=== PATIENT | male | born 1960 | race Caucasian/White ===

== ENCOUNTER → 2016-12-13 | Outpatient (CLI) | payer BC ==
[2016-12-13 17:22] LABS: ABSOLUTE EOSINOPHILS # (AUTO) 0.1 10^3/uL (0.0-0.6); ABSOLUTE LYMPHOCYTES (AUTO) 0.8 10^3/uL (0.5-4.7); ABSOLUTE MONOCYTES (AUTO) 1.1 10^3/uL (0.1-1.4); BASOPHILS % (AUTO) 0.2 % (0-2); EOSINOPHILS % (AUTO) 0.6 % (0-6); HEMATOCRIT 46.2 % (37.9-51.0); HEMOGLOBIN 15.5 g/dL (13.5-17.0); HGB HCT DIFFERENCE 0.3; LYMPHOCYTES % (AUTO) 5.1 % (13-45); MEAN CORPUSCULAR HEMOGLOBIN 28.5 pg (27.0-33.4); MEAN CORPUSCULAR HGB CONC 33.5 g/dL (32.0-36.0); MEAN CORPUSCULAR VOLUME 85 fl (80-97); MONOCYTES % (AUTO) 6.9 % (3-13); RED BLOOD COUNT 5.44 10^6/uL (4.35-5.55); RED CELL DISTRIBUTION WIDTH 13.7 % (11.5-14.0); SEGMENTED NEUTROPHILS % (AUTO) 87.2 % (42-78)
[2016-12-13 17:36] LABS: ALANINE AMINOTRANSFERASE 45 U/L (21-72); ALBUMIN 4.3 g/dL (3.5-5.0); ALKALINE PHOSPHATASE 55 U/L (38-126); ANION GAP 14 (5-19); ASPARTATE AMINO TRANSFERASE 32 U/L (17-59); BILIRUBIN,TOTAL 1.5 mg/dL (0.2-1.3); BLOOD UREA NITROGEN 20 mg/dL (7-20); CALCIUM 9.4 mg/dL (8.4-10.2); CARBON DIOXIDE 26 mmol/L (22-30); CHLORIDE 101 mmol/L (98-107); CREATININE RESULT 1.08 mg/dL (0.52-1.25); GLUCOSE 110 mg/dL (75-110); LIPASE 65.7 U/L (23-300); POTASSIUM 4.4 mmol/L (3.6-5.0); SODIUM 141.4 mmol/L (137-145); TOTAL PROTEIN 7.2 g/dL (6.3-8.2)
== END ==
LOC: OD 16:12
PROVIDERS: ATTEND Family Medicine
DX: K29.90 Gastroduodenitis, unspecified, without bleeding (principal)
CPT/HCPCS: 36415; 80053; 83690; 85025

== ENCOUNTER → 2016-12-13 | Outpatient (CLI) | payer BC | LOC: RAD 16:42 | PROVIDERS: ATTEND Family Medicine | DX: K29.90 Gastroduodenitis, unspecified, without bleeding (principal) | CPT/HCPCS: 74020 ==

== ENCOUNTER → 2016-12-14 | Outpatient (CLI) | payer BC ==
[2016-12-14 14:15] LABS: ABSOLUTE EOSINOPHILS # (AUTO) 0.1 10^3/uL (0.0-0.6); ABSOLUTE LYMPHOCYTES (AUTO) 1.9 10^3/uL (0.5-4.7); ABSOLUTE MONOCYTES (AUTO) 0.9 10^3/uL (0.1-1.4); ABSOLUTE NEUT (AUTO) 5.9 10^3/uL (1.7-8.2); BASOPHILS % (AUTO) 0.1 % (0-2); EOSINOPHILS % (AUTO) 0.9 % (0-6); HEMATOCRIT 46.4 % (37.9-51.0); HGB HCT DIFFERENCE -1.4; LYMPHOCYTES % (AUTO) 21.6 % (13-45); MEAN CORPUSCULAR HEMOGLOBIN 28.1 pg (27.0-33.4); MEAN CORPUSCULAR HGB CONC 32.3 g/dL (32.0-36.0); MEAN CORPUSCULAR VOLUME 87 fl (80-97); MONOCYTES % (AUTO) 10.5 % (3-13); RED BLOOD COUNT 5.33 10^6/uL (4.35-5.55); RED CELL DISTRIBUTION WIDTH 13.8 % (11.5-14.0); SEGMENTED NEUTROPHILS % (AUTO) 66.9 % (42-78); WHITE BLOOD COUNT 8.9 10^3/uL (4.0-10.5)
== END ==
LOC: OD 13:27
PROVIDERS: ATTEND Family Medicine
DX: K52.9 Noninfective gastroenteritis and colitis, unspecified (principal)
CPT/HCPCS: 36415; 74020; 85025

== ENCOUNTER → 2016-12-17 | Outpatient (CLI) | payer BC ==
[2016-12-17 12:26] LABS: ANION GAP 12 (5-19); BLOOD UREA NITROGEN 13 mg/dL (7-20); CALCIUM 9.7 mg/dL (8.4-10.2); CARBON DIOXIDE 30 mmol/L (22-30); CHLORIDE 102 mmol/L (98-107); CREATININE RESULT 1.03 mg/dL (0.52-1.25); GLUCOSE 96 mg/dL (75-110); POTASSIUM 4.6 mmol/L (3.6-5.0); SODIUM 143.8 mmol/L (137-145)
== END ==
LOC: OD 10:40
PROVIDERS: ATTEND Family Medicine
DX: K52.9 Noninfective gastroenteritis and colitis, unspecified (principal); K56.7 Ileus, unspecified
CPT/HCPCS: 36415; 74020; 80048

== ENCOUNTER 2017-11-23 23:34 | Inpatient (IN) | payer BC ==
--- NOTE | 2017-11-24 00:59 | ER Document Report ---
ED General - General Chief Complaint: Chest Pressure Stated Complaint: CHEST PAIN, ABDOMINAL PAIN Time Seen by Provider: 11/24/17 00:58 Notes: Patient is a 57-year-old male who presents with complaint of abdominal distention has been worsening over last 24 hours. Says he has been vomiting every time he tries to eat or drink anything. Recently his vomiting is consistent with a greenish colored. He said it a very small bowel movement the last 24 hours. Since then he said no passage of gas. He has had a history of bowel obstruction one time 2 years ago. He has no history of abdominal surgeries. Previous bowel obstruction resolved with an NG tube. He denies any recent fevers or infections. No other complaints at this time. Chief complaint and she has noticed chest pressure. The patient says the only chest pressure he has is all the pressure coming from his abdomen pushing it up against his diaphragm and chest. He does not have actual chest pain or cardiac symptoms. TRAVEL OUTSIDE OF THE [place] IN LAST 30 DAYS: No - Related Data Allergies/Adverse Reactions: No Known Allergies Allergy (Verified 11/23/17 23:48) Home Medications: Current Home Medications Loratadine [Loratadine] 1 tab PO DAILY 11/23/17 [History] Ondansetron HCl [Ondansetron HCl] 2 tab PO PRN PRN 11/23/17 [History] Past Medical History - Social History Smoking Status: Never Smoker Frequency of alcohol use: None Drug Abuse: None Family History: Reviewed & Not Pertinent - Past Medical History Cardiac Medical History: Denies: Hx Coronary Artery Disease, Hx Heart Attack, Hx Hypertension Pulmonary Medical History: Denies: Hx Asthma, Hx Bronchitis, Hx COPD, Hx Pneumonia Neurological Medical History: Denies: Hx Cerebrovascular Accident, Hx Seizures Musculoskeltal Medical History: Denies Hx Arthritis Past Surgical History: Reports: Hx Cholecystectomy, Hx Inguinal Hernia - Immunizations Hx Diphtheria, Pertussis, Tetanus Vaccination: No Review of Systems - Review of Systems Notes: My Normal Review Basic REVIEW OF SYSTEMS: CONSTITUTIONAL : Denies fever, chills, or sweats. Denies recent illness. EENT: Denies eye, ear, throat, or mouth pain or symptoms. Denies nasal or sinus congestion. CARDIOVASCULAR: Denies chest pain. RESPIRATORY: Denies cough, cold, or chest congestion. Denies shortness of breath, difficulty breathing, or wheezing. GASTROINTESTINAL: Abdominal pain. Some vomiting. GENITOURINARY: Denies difficulty urinating, painful urination, burning, frequency, or blood in urine. MUSCULOSKELETAL: Denies neck or back pain or joint pain or swelling. SKIN: Denies rash or skin lesions. NEUROLOGICAL: Denies altered mental status or loss of consciousness. Denies headache. Denies weakness or paralysis or loss of use of either side. Denies problems with gait or speech. Denies sensory or motor loss. ALL OTHER SYSTEMS REVIEWED AND NEGATIVE. Physical Exam - Vital signs Vitals: Temp Pulse Resp BP Pulse Ox 99.7 F 106 H 16 154/88 H 94 11/23/17 23:55 11/23/17 23:55 11/23/17 23:55 11/23/17 23:55 11/23/17 23:55 - Notes Notes: General Appearance: Well nourished, alert, cooperative, no acute distress, mild obvious discomfort. Vitals: reviewed, See vital signs table. Head: no swelling or tenderness to the head Eyes: PERRL, EOMI, Conjuctiva clear Mouth: No decreasd moisture Lungs: No wheezing, No rales, No rhonci, No accessory muscle use, good air exchange bilaterally. Heart: Normal rate, Regular rythm, No murmur, no rub Abdomen: Sent bowel sounds., soft, No rigidity, 7 abdomen. Minimal tenderness to palpation. Abdomen soft and not rigid. Extremities: strength 5/5 in all extremities, good pulses in all extremities, no swelling or tenderness in the extremities, no edema. Skin: warm, dry, appropriate color, no rash Neuro: speech clear, oriented x 3, normal affect, responds appropriately to questions. Course - Re-evaluation Re-evalutation: 11/24/17 02:[address] Mac, general surgeon cyber incident responder, informed him of the findings on the x-ray as well as the patient's physical exam findings consistent with small bowel obstruction. He agrees with placement of NG tube. He says he will admit the patient but asks in the meantime that I obtain a CT scan with IV contrast for him to follow-up on. I did explain this to the patient and his and they are agreeable to plan. Patient on reevaluation continues to have a soft abdomen that is distended but not rigid or firm. He continues to be very comfortable and does not require any pain medication. The patient's now mentions that she now remembers that he actually has had a previous abdominal surgery. She says that in the past he did have an inguinal hernia repair. No other abdominal surgeries. Dictation of this chart was performed using voice recognition software; therefore, there may be some unintended grammatical errors. - Vital Signs Vital signs: Temp Pulse Resp BP Pulse Ox 99.7 F 106 H 16 154/88 H 94 11/23/17 23:55 11/23/17 23:55 11/23/17 23:55 11/23/17 23:55 11/23/17 23:55 - Laboratory Result Diagrams: 11/24/17 01:20 11/24/17 01:20 Laboratory results interpreted by me: 11/24/17 11/24/17 01:20 01:20 WBC 17.8 H RBC 5.73 H Seg Neutrophils % 86.5 H Lymphocytes % 8.0 L Absolute Neutrophils 15.4 H Glucose 117 H Total Bilirubin 1.5 H - EKG Interpretation by Me Additional EKG results interpreted by me: 11/24/17 00:58 EKG is reviewed and interpreted by me. EKG show sinus rhythm with a rate of [address] segment elevation or depression. No ischemic T-wave inversions. NE interval, QRS duration, QTc intervals are within normal range. No old EKG for comparison 11/24/17 00:59 Discharge - Discharge Clinical Impression: Small bowel obstruction Condition: Stable Disposition: ADMITTED INPATIENT Admitting Provider: Surgicalist Unit Admitted: Surgical Floor
[2017-11-24] MEDS ORDERED: ONDANSETRON HCL INJ/PF 4 MG/2 ML SDV IV ONE (01:04)
[2017-11-24 01:36] LABS: ABSOLUTE BASOPHILS # (AUTO) 0.1 10^3/uL (0.0-0.2); ABSOLUTE LYMPHOCYTES (AUTO) 1.4 10^3/uL (0.5-4.7); ABSOLUTE MONOCYTES (AUTO) 0.9 10^3/uL (0.1-1.4); ABSOLUTE NEUT (AUTO) 15.4 10^3/uL (1.7-8.2); BASOPHILS % (AUTO) 0.4 % (0-2); HEMATOCRIT 48.3 % (37.9-51.0); HEMOGLOBIN 16.5 g/dL (13.5-17.0); MEAN CORPUSCULAR HEMOGLOBIN 28.8 pg (27.0-33.4); MEAN CORPUSCULAR HGB CONC 34.2 g/dL (32.0-36.0); MEAN CORPUSCULAR VOLUME 84 fl (80-97); MONOCYTES % (AUTO) 5.1 % (3-13); PLATELET COUNT 315 10^3/uL (150-450); RED BLOOD COUNT 5.73 10^6/uL (4.35-5.55); RED CELL DISTRIBUTION WIDTH 13.3 % (11.5-14.0); SEGMENTED NEUTROPHILS % (AUTO) 86.5 % (42-78); TOTAL CELLS COUNTED % (AUTO) 100 %; WHITE BLOOD COUNT 17.8 10^3/uL (4.0-10.5)
[2017-11-24 01:52] LABS: ALANINE AMINOTRANSFERASE 62 U/L (21-72); ALBUMIN 4.5 g/dL (3.5-5.0); ALKALINE PHOSPHATASE 75 U/L (38-126); ANION GAP 12 (5-19); ASPARTATE AMINO TRANSFERASE 33 U/L (17-59); BILIRUBIN,DIRECT 0.3 mg/dL (0.0-0.4); BILIRUBIN,TOTAL 1.5 mg/dL (0.2-1.3); BLOOD UREA NITROGEN 13 mg/dL (7-20); CALCIUM 10.2 mg/dL (8.4-10.2); CARBON DIOXIDE 28 mmol/L (22-30); CHLORIDE 102 mmol/L (98-107); GLUCOSE 117 mg/dL (75-110); POTASSIUM 4.3 mmol/L (3.6-5.0); SODIUM 142.1 mmol/L (137-145); TOTAL PROTEIN 7.5 g/dL (6.3-8.2)
--- NOTE | 2017-11-24 02:19 | RADIOLOGY REPORT (SQ) ---
EXAM DESCRIPTION: ACUTE ABDOMEN SERIES CLINICAL HISTORY: 57 years, Male, obstruction, abdominal distention COMPARISON: None. LIMITATIONS: None. FINDINGS: No acute cardiopulmonary findings. Right upper abdominal clips. Mild gaseous small bowel distention includes loops measuring up to 5.2 cm, moderate stacking of bowel loops. IMPRESSION: Moderate small bowel obstruction or ileus. 2011 [employer]- All Rights Reserved
[2017-11-24] MEDS ORDERED: NORMAL SALINE 1000 ML 1,000 ML IV ONE ×2 (02:43→14:00)
[2017-11-24] MEDS ORDERED: PHARMACY COMMUNICATION ORDER MC NR (02:45)
--- NOTE | 2017-11-24 04:42 | RADIOLOGY REPORT (SQ) ---
EXAM DESCRIPTION: CT ABD/PELVIS WITH IV ONLY CLINICAL HISTORY: 57 years Male, bowel obstruction COMPARISON: CR, same day. TECHNIQUE: 100 mL Isovue-370 IV and oral contrast. This exam was performed according to our departmental dose-optimization program, which includes automated exposure control, adjustment of the mA and/or kV according to patient size and/or use of iterative reconstruction technique. FINDINGS: Moderate diffuse ileal bowel wall thickening, dilated loops of small bowel measuring up to 4.1 cm in diameter, no focal zone of transition, nondistended distal ileum, no significant free fluid, and no free air. Enteric tube tip in the stomach, mild hepatic steatosis, mild nonspecific "sahra mesentery" fat streaking in the mid abdomen, and 2 cm left inguinal fat only hernia. Inferior chest, spleen, adrenals, pancreas, renal system, pelvic organs, vasculature, lymphatics, and musculoskeleton appear otherwise unremarkable. IMPRESSION: Moderate diffuse ileitis, infectious, inflammatory, neoplastic processes are in the differential diagnosis. Dilated small bowel consistent with ileus or low-grade obstruction.
[2017-11-24] MEDS ORDERED: INFLUENZA ADLT QUAD (36MOS+) 2017-18 VAC 0.5 ML SYR IM PRN (05:59)
--- NOTE | 2017-11-24 06:12 | RADIOLOGY REPORT (SQ) ---
EXAM DESCRIPTION: KUB/ABDOMEN (SINGLE VIEW) CLINICAL HISTORY: 57 years, Male, Check Placement of NG Tube COMPARISON: None. LIMITATIONS: None. FINDINGS: Small bowel dilation measures 4.7 cm with air-fluid level at the upper abdomen.Right upper abdominal clips. Tip and proximal port of an enteric tube is at the left upper abdominal quadrant- stomach. Few air-fluid levels of the right colon. IMPRESSION: Dilated small bowel may indicate ileus or low-grade obstruction. Enteric tube. 2011 [employer]- All Rights Reserved
[2017-11-24] MEDS: POTASSI CL 20 MEQ/D5NS 1L 1000 ML IV PRN ×2 (06:14→13:25)
[2017-11-24] MEDS: HYDROMORPHONE HCL INJ/PF 2 MG/ML AMPULE IV PRN ×2 (07:56→17:25)
[2017-11-24] MEDS: ONDANSETRON HCL INJ/PF 4 MG/2 ML SDV IV PRN ×2 (07:56→17:25)
--- NOTE | 2017-11-24 08:41 | EKG REPORT ---
SEVERITY:- BORDERLINE ECG - SINUS TACHYCARDIA ATRIAL PREMATURE COMPLEX PROBABLE LEFT ATRIAL ABNORMALITY : Confirmed by: Renan Torres MD 24-Nov-2017 08:40:24
[2017-11-24] MEDS: ENOXAPARIN SODIUM INJ 40 MG/0.4 ML DISP.SYRIN SUBCUT SCH (09:21)
--- NOTE | 2017-11-24 14:17 | PDOC PROGRESS REPORT ---
Subjective Progress Note for:: 11/24/17 Subjective:: Pain better NO BM yet Reason For Visit: SMALL BOWEL OBSTRUCTION Physical Exam Vital Signs: Temp Pulse Resp BP Pulse Ox 98.1 F 99 18 142/81 H 94 11/24/17 07:41 11/24/17 07:41 11/24/17 07:41 11/24/17 07:41 11/24/17 07:41 Intake & Output 11/23/17 11/24/17 11/25/17 06:59 06:59 06:59 Intake Total 60 Balance 60 Weight 110 kg GI/Abdominal exam: PRESENT: tenderness - in right lower abdomen soft abdomen minimal distention Results Impressions: Acute Abdomen Series 11/24/17 01:04 IMPRESSION: Moderate small bowel obstruction or ileus. 2010 [employer]- All Rights Reserved KUB X-Ray 11/24/17 02:39 IMPRESSION: Dilated small bowel may indicate ileus or low-grade obstruction. Enteric tube. 2010 [employer]- All Rights Reserved Abdomen/Pelvis CT 11/24/17 02:40 IMPRESSION: Moderate diffuse ileitis, infectious, inflammatory, neoplastic processes are in the differential diagnosis. Dilated small bowel consistent with ileus or low-grade obstruction. Assessment & Plan - Plan Summary Plan Summary: Enteritis possible Crohn's with partial obstruction Bowel rest NG tube IV hydration expecting to resolve will need complete work up with GI as an out patient if resolves now. D/W Patient and family about the diagnosis, plan of care
[2017-11-24 15:10] LABS: ABSOLUTE BASOPHILS # (AUTO) 0.1 10^3/uL (0.0-0.2); ABSOLUTE LYMPHOCYTES (AUTO) 1.5 10^3/uL (0.5-4.7); ABSOLUTE NEUT (AUTO) 11.2 10^3/uL (1.7-8.2); BASOPHILS % (AUTO) 0.4 % (0-2); EOSINOPHILS % (AUTO) 0.2 % (0-6); HEMATOCRIT 46.2 % (37.9-51.0); HEMOGLOBIN 15.8 g/dL (13.5-17.0); LYMPHOCYTES % (AUTO) 10.9 % (13-45); MEAN CORPUSCULAR HEMOGLOBIN 29.1 pg (27.0-33.4); MEAN CORPUSCULAR HGB CONC 34.1 g/dL (32.0-36.0); MEAN CORPUSCULAR VOLUME 85 fl (80-97); MONOCYTES % (AUTO) 7.3 % (3-13); PLATELET COUNT 291 10^3/uL (150-450); RED BLOOD COUNT 5.43 10^6/uL (4.35-5.55); RED CELL DISTRIBUTION WIDTH 13.7 % (11.5-14.0); SEGMENTED NEUTROPHILS % (AUTO) 81.2 % (42-78); TOTAL CELLS COUNTED % (AUTO) 100 %; WHITE BLOOD COUNT 13.8 10^3/uL (4.0-10.5)
[2017-11-24] MEDS: PIPERACILLIN SODIUM/TAZOBACTAM 3.375 GM in NORMAL SALINE 100 ML IV SCH ×2 (15:17→21:34)
[2017-11-24 15:21] LABS: ANION GAP 11 (5-19); BLOOD UREA NITROGEN 14 mg/dL (7-20); CALCIUM 9.8 mg/dL (8.4-10.2); CARBON DIOXIDE 30 mmol/L (22-30); CHLORIDE 104 mmol/L (98-107); GLUCOSE 118 mg/dL (75-110); SODIUM 145.4 mmol/L (137-145)
[2017-11-24] MEDS: PANTOPRAZOLE SODIUM 40 MG VIAL IV SCH (18:23)
[2017-11-24] MEDS ORDERED: NORMAL SALINE 0.9% INJ ONE (18:30)
--- NOTE | 2017-11-24 18:48 | HISTORY AND PHYSICAL E ---
History and Physical NAME: IBETH ORTIZ : 1960 AGE: 57Y ADMITTED: 11/24/2017 ROOM: 530 HISTORY OF PRESENT ILLNESS: The patient is being admitted to the hospital for evaluation and management of a possible partial small bowel obstruction and possible enteritis. The patient has abdominal pain, nausea, vomiting of 1 day to 2 days' duration and progressively got worse. He came to the emergency room. In the emergency room he had a CT scan of abdomen and pelvis done which revealed a thickened small bowel loops with a partial obstruction possibly and then admitted him. He had an NG tube placed, given hydration and started feeling better. Previously in 2014 he had a similar episode of abdominal pain and was told to have partial obstruction that resolved and then apparently he did follow with GI who had upper endoscopy and colonoscopy, and then he was told that it was normal. After that for the last 2 years was doing okay and then again with another episode. In between it he did not have any similar abdominal pain or any issues with the GI tract apparently. PAST MEDICAL HISTORY: Partial obstruction 2 yrs ago. REVIEW OF SYSTEMS: As per examination. PHYSICAL EXAMINATION: GENERAL: Revealed awake, alert and oriented. HEAD/NECK: Revealed no lymphadenopathy or masses. RESPIRATORY: Both lungs are clear to auscultation. CARDIOVASCULAR: Both heart sounds are regular. No murmurs or gallops. ABDOMEN: Soft and midline tender. No mass palpable, no hernia. EXTREMITIES: Normal, well perfused. DIAGNOSTIC DATA: I reviewed and his white count was 17, hemoconcentration, hemoglobin of 16.5 at the time of admission. His CT scan of the abdomen and pelvis revealed a distal ileal loop about 10-15 cm segments, thickened, middle thickenings and edema of the wall with minimal inflammatory stranding around the mesentery causing the partial obstruction and ileus. IMPRESSION OVERALL: Acute enteritis involving the loop of ilium close to the terminal part of the ileum causing a partial obstruction or possible ileus. It is due to enteritis. Based on previous history of a similar episode and now, we do need to keep in view the possibility of Crohn disease, but at this point it seems to be obstruction is partial and more than likely it might resolve. I told the patient and the patient's family to continue to follow with the primary care and GI doctor to re-evaluate for possible Crohn via endoscopy and small bowel follow-through. I strongly recommended to follow with the primary care. In the meantime, he is to continue to have bowel rest and NG tube, IV hydration, DVT prophylaxis and then repeat the labs and IV hydration. Empirically I put him on Zosyn just in case there is any bacterial component of enteritis. The patient and family appeared to understanding completely with the plan and management. I spent more than an hour going through all the studies, admission process, explaining the pathophysiology for the plan to the patient and patient's family. DICTATING PHYSICIAN: CHARLES BROWN M.D. [id number] PHY#: [id number] ID: [id number] JOB#: [id number] ACCT: [id number] cc:CHARLES BROWN M.D. > MTDD
[2017-11-24] MEDS ORDERED: PHENOL/SODIUM PHENOLATE 100 SPRAY/177 ML BOTTLE PO PRN (21:54)
[2017-11-25] MEDS: POTASSI CL 20 MEQ/D5NS 1L 1000 ML IV PRN ×3 (00:06→20:06)
[2017-11-25] MEDS ORDERED: PHENOL/SODIUM PHENOLATE 100 SPRAY/177 ML BOTTLE ONE (01:00)
[2017-11-25 04:52] LABS: ABSOLUTE LYMPHOCYTES (AUTO) 1.7 10^3/uL (0.5-4.7); ABSOLUTE MONOCYTES (AUTO) 0.9 10^3/uL (0.1-1.4); ABSOLUTE NEUT (AUTO) 9.9 10^3/uL (1.7-8.2); BASOPHILS % (AUTO) 0.3 % (0-2); EOSINOPHILS % (AUTO) 0.3 % (0-6); HEMATOCRIT 43.6 % (37.9-51.0); HEMOGLOBIN 14.5 g/dL (13.5-17.0); LYMPHOCYTES % (AUTO) 13.4 % (13-45); MEAN CORPUSCULAR HEMOGLOBIN 28.5 pg (27.0-33.4); MEAN CORPUSCULAR HGB CONC 33.2 g/dL (32.0-36.0); MEAN CORPUSCULAR VOLUME 86 fl (80-97); MONOCYTES % (AUTO) 7.3 % (3-13); PLATELET COUNT 255 10^3/uL (150-450); RED BLOOD COUNT 5.08 10^6/uL (4.35-5.55); RED CELL DISTRIBUTION WIDTH 13.9 % (11.5-14.0); SEGMENTED NEUTROPHILS % (AUTO) 78.7 % (42-78); TOTAL CELLS COUNTED % (AUTO) 100 %; WHITE BLOOD COUNT 12.6 10^3/uL (4.0-10.5)
[2017-11-25 05:07] LABS: ANION GAP 14 (5-19); BLOOD UREA NITROGEN 15 mg/dL (7-20); CALCIUM 9.2 mg/dL (8.4-10.2); CARBON DIOXIDE 29 mmol/L (22-30); CHLORIDE 105 mmol/L (98-107); GLUCOSE 101 mg/dL (75-110); POTASSIUM 4.3 mmol/L (3.6-5.0); SODIUM 147.5 mmol/L (137-145)
[2017-11-25] MEDS: PIPERACILLIN SODIUM/TAZOBACTAM 3.375 GM in NORMAL SALINE 100 ML IV SCH ×3 (06:38→21:58)
[2017-11-25] MEDS: ENOXAPARIN SODIUM INJ 40 MG/0.4 ML DISP.SYRIN SUBCUT SCH (09:30)
[2017-11-25] MEDS: PANTOPRAZOLE SODIUM 40 MG VIAL IV SCH ×2 (09:30→17:20)
--- NOTE | 2017-11-25 11:19 | RADIOLOGY REPORT (SQ) ---
EXAM DESCRIPTION: ABDOMEN 2 VIEWS COMPLETED DATE/TIME: 11/25/2017 10:58 am REASON FOR STUDY: SMALL BOWEL OBSTRUCTION COMPARISON: 11/24/2017 NUMBER OF VIEWS: Two views. TECHNIQUE: Supine and erect/decubitus radiographic images of the abdomen acquired. LIMITATIONS: None. FINDINGS: FREE AIR: None. No abnormal gas collections. LUNG BASES: Clear. BOWEL GAS PATTERN: Nonobstructive pattern. No dilated loops or air fluid levels. CALCIFICATIONS: No suspicious calcifications. SOFT TISSUES: No gross mass or suggestion of organomegaly. HARDWARE: Clips right upper quadrant. BONES: No acute fracture. No worrisome bone lesions. OTHER: Unchanged position of nasogastric tube. IMPRESSION: No obstruction. TECHNICAL DOCUMENTATION: JOB ID: [id number] [employer]- All Rights Reserved
[2017-11-25] MEDS: HYDROCODONE/ACETAMINOPHEN 5-325 MG TABLET PO PRN ×2 (14:26→22:01)
--- NOTE | 2017-11-25 14:37 | PDOC PROGRESS REPORT ---
Subjective Progress Note for:: 11/25/17 Subjective:: No nausea pain abdomen - better NO BM yet minimal NG tube out put Reason For Visit: SMALL BOWEL OBSTRUCTION Physical Exam Vital Signs: Temp Pulse Resp BP Pulse Ox 99.1 F 84 16 136/72 H 98 11/25/17 11:57 11/25/17 11:57 11/25/17 11:57 11/25/17 11:57 11/25/17 11:57 Intake & Output 11/24/17 11/25/17 11/26/17 06:59 06:59 06:59 Intake Total 60 3366 Output Total 700 Balance 60 2666 Weight 110 kg GI/Abdominal exam: PRESENT: other - Distention - less, soft, minimal tenderness X ray abdomen - no signs of obstruction Results Laboratory Results: 11/25/17 03:55 11/25/17 03:55 11/24/17 11/24/17 11/25/17 14:50 14:50 03:55 WBC 13.8 H 12.6 H RBC 5.43 5.08 Hgb 15.8 14.5 Hct 46.2 43.6 MCV 85 86 MCH 29.1 28.5 MCHC 34.1 33.2 RDW 13.7 13.9 Plt Count 291 255 Seg Neutrophils % 81.2 H 78.7 H Lymphocytes % 10.9 L 13.4 Monocytes % 7.3 7.3 Eosinophils % 0.2 0.3 Basophils % 0.4 0.3 Absolute Neutrophils 11.2 H 9.9 H Absolute Lymphocytes 1.5 1.7 Absolute Monocytes 1.0 0.9 Absolute Eosinophils 0.0 0.0 Absolute Basophils 0.1 0.0 Sodium 145.4 H Potassium 4.0 Chloride 104 Carbon Dioxide 30 Anion Gap 11 BUN 14 Creatinine 0.99 Est GFR ( Amer) > 60 Est GFR (Non-Af Amer) > 60 Glucose 118 H Calcium 9.8 11/25/17 03:55 WBC RBC Hgb Hct MCV MCH MCHC RDW Plt Count Seg Neutrophils % Lymphocytes % Monocytes % Eosinophils % Basophils % Absolute Neutrophils Absolute Lymphocytes Absolute Monocytes Absolute Eosinophils Absolute Basophils Sodium 147.5 H Potassium 4.3 Chloride 105 Carbon Dioxide 29 Anion Gap 14 BUN 15 Creatinine 1.01 Est GFR ( Amer) > 60 Est GFR (Non-Af Amer) > 60 Glucose 101 Calcium 9.2 Impressions: Acute Abdomen Series 11/24/17 01:04 IMPRESSION: Moderate small bowel obstruction or ileus. 2010 [email or web address]- All Rights Reserved KUB X-Ray 11/24/17 02:39 IMPRESSION: Dilated small bowel may indicate ileus or low-grade obstruction. Enteric tube. 2010 [email or web address]- All Rights Reserved Abdomen/Pelvis CT 11/24/17 02:40 IMPRESSION: Moderate diffuse ileitis, infectious, inflammatory, neoplastic processes are in the differential diagnosis. Dilated small bowel consistent with ileus or low-grade obstruction. Abdomen X-Ray 11/25/17 00:00 IMPRESSION: No obstruction. Assessment & Plan - Plan Summary Plan Summary: Enteritis - Indfectious, possible Crohn's since it is recurrent with Ileus Plan DC NG tube PO clear liquid diet GI Consult for complete GI Work up
[2017-11-26] MEDS: POTASSI CL 20 MEQ/D5NS 1L 1000 ML IV PRN ×3 (03:52→22:23)
[2017-11-26 04:23] LABS: HEMATOCRIT 39.1 % (37.9-51.0); HEMOGLOBIN 13.3 g/dL (13.5-17.0); MEAN CORPUSCULAR HEMOGLOBIN 28.9 pg (27.0-33.4); MEAN CORPUSCULAR HGB CONC 33.9 g/dL (32.0-36.0); MEAN CORPUSCULAR VOLUME 85 fl (80-97); PLATELET COUNT 221 10^3/uL (150-450); RED CELL DISTRIBUTION WIDTH 13.3 % (11.5-14.0); WHITE BLOOD COUNT 8.1 10^3/uL (4.0-10.5)
[2017-11-26 04:55] LABS: ANION GAP 9 (5-19); BLOOD UREA NITROGEN 12 mg/dL (7-20); CARBON DIOXIDE 30 mmol/L (22-30); CHLORIDE 106 mmol/L (98-107); GLUCOSE 95 mg/dL (75-110); POTASSIUM 4.2 mmol/L (3.6-5.0); SODIUM 144.5 mmol/L (137-145)
[2017-11-26] MEDS: PIPERACILLIN SODIUM/TAZOBACTAM 3.375 GM in NORMAL SALINE 100 ML IV SCH ×3 (05:21→22:28)
[2017-11-26] MEDS: ENOXAPARIN SODIUM INJ 40 MG/0.4 ML DISP.SYRIN SUBCUT SCH (09:03)
[2017-11-26] MEDS: PANTOPRAZOLE SODIUM 40 MG VIAL IV SCH ×2 (09:03→17:31)
[2017-11-26] MEDS: MAG HYDROX/AL HYDROX/SIMETH SUSP 30 ML UDCUP PO PRN ×2 (15:15→22:28)
--- NOTE | 2017-11-26 19:42 | PDOC PROGRESS REPORT ---
Subjective Progress Note for:: 11/26/17 Subjective:: Patient states that he still feels bloated in the abdomen but not as bad as when he came to the hospital. His is concerned about some blood she saw on the NG tube but the NG tube has been removed and his main complaint today is reflux and heartburn. The nurse and I checked and is already on twice daily Protonix. We will add some Mylanta for comfort. Pt states he has been having some loose stools. 2 today. Reason For Visit: SMALL BOWEL OBSTRUCTION Physical Exam Vital Signs: Temp Pulse Resp BP Pulse Ox 98.7 F 83 20 149/85 H 100 11/26/17 15:59 11/26/17 15:59 11/26/17 15:59 11/26/17 15:59 11/26/17 15:59 Intake & Output 11/25/17 11/26/17 11/27/17 06:59 06:59 06:59 Intake Total 3366 4475 2531 Output Total 700 800 Balance 2666 3675 2531 Weight 110.4 kg GI/Abdominal exam: PRESENT: distended, other - Rounded, not very tender today. No scars on the abdomen from previous surgery. states however he had a laparoscopic cholecystectomy about a year ago. They are not sure if he had stones or not. Results Laboratory Results: 11/26/17 03:50 11/26/17 03:50 11/26/17 11/26/17 03:50 03:50 WBC 8.1 RBC 4.60 Hgb 13.3 L Hct 39.1 MCV 85 MCH 28.9 MCHC 33.9 RDW 13.3 Plt Count 221 Sodium 144.5 Potassium 4.2 Chloride 106 Carbon Dioxide 30 Anion Gap 9 BUN 12 Creatinine 0.95 Est GFR ( Amer) > 60 Est GFR (Non-Af Amer) > 60 Glucose 95 Calcium 9.0 Impressions: Acute Abdomen Series 11/24/17 01:04 IMPRESSION: Moderate small bowel obstruction or ileus. 2010 [employer]- All Rights Reserved KUB X-Ray 11/24/17 02:39 IMPRESSION: Dilated small bowel may indicate ileus or low-grade obstruction. Enteric tube. 2010 [employer]- All Rights Reserved Abdomen/Pelvis CT 11/24/17 02:40 IMPRESSION: Moderate diffuse ileitis, infectious, inflammatory, neoplastic processes are in the differential diagnosis. Dilated small bowel consistent with ileus or low-grade obstruction. Abdomen X-Ray 11/25/17 00:00 IMPRESSION: No obstruction. Assessment & Plan - Diagnosis (1) Small bowel obstruction Is this a current diagnosis for this admission?: Yes Plan: This appears to be resolving. He seems to be improving slowly,as he is still distended. He is trying clear liquids today but still having a good amount of heartburn. Will add Mylanta. Continue Protonix. Not improved on exam tomorrow consider repeat abdominal x-rays but for now observation. GI consult was requested but not available today. They may be available tomorrow. Discussed with patient and about considerations to proceed to further GI workup to be sure that there is not Crohn's. They know that viral enteritis is still a possibility. - Time Time Spent with patient: 15-24 minutes
[2017-11-26] MEDS ORDERED: METOCLOPRAMIDE HCL INJ/PF 10 MG/2 ML SDV IV PRN (23:02)
[2017-11-27] MEDS: POTASSI CL 20 MEQ/D5NS 1L 1000 ML IV PRN ×2 (05:32→17:45)
[2017-11-27] MEDS: PIPERACILLIN SODIUM/TAZOBACTAM 3.375 GM in NORMAL SALINE 100 ML IV SCH (05:32)
[2017-11-27] MEDS: MAG HYDROX/AL HYDROX/SIMETH SUSP 30 ML UDCUP PO PRN ×3 (05:32→23:59)
[2017-11-27] MEDS: PANTOPRAZOLE SODIUM 40 MG VIAL IV SCH (10:49)
[2017-11-27] MEDS: ENOXAPARIN SODIUM INJ 40 MG/0.4 ML DISP.SYRIN SUBCUT SCH (10:50)
--- NOTE | 2017-11-27 12:15 | PDOC PROGRESS REPORT ---
Subjective Progress Note for:: 11/27/17 Subjective:: Today patient patient sleeping on his left side when I entered the room. After awakening he states that his hiccups are now gone. He feels that his abdomen is slightly less bloated today. Denies abdominal pain. Has had nearly 5 loose stools since I was here 24 hours ago. Reason For Visit: SMALL BOWEL OBSTRUCTION Physical Exam Vital Signs: Temp Pulse Resp BP Pulse Ox 98.6 F 93 18 170/90 H 98 11/27/17 07:58 11/27/17 07:58 11/27/17 07:58 11/27/17 07:58 11/27/17 07:58 Intake & Output 11/26/17 11/27/17 11/28/17 06:59 06:59 06:59 Intake Total 4475 4497 Output Total 800 Balance 3675 4497 Weight 110.4 kg Respiratory exam: PRESENT: clear to auscultation chidi GI/Abdominal exam: PRESENT: normal bowel sounds, other - Examination of the abdomen reveals that it is rounded. Scars from previous laparoscopic cholecystectomy are well hidden. Abdomen is soft today and nontender. Still seems somewhat bloated. Results Laboratory Results: 11/26/17 03:50 11/26/17 03:50 Impressions: Acute Abdomen Series 11/24/17 01:04 IMPRESSION: Moderate small bowel obstruction or ileus. 2010 [employer]- All Rights Reserved KUB X-Ray 11/24/17 02:39 IMPRESSION: Dilated small bowel may indicate ileus or low-grade obstruction. Enteric tube. 2010 [employer]- All Rights Reserved Abdomen/Pelvis CT 11/24/17 02:40 IMPRESSION: Moderate diffuse ileitis, infectious, inflammatory, neoplastic processes are in the differential diagnosis. Dilated small bowel consistent with ileus or low-grade obstruction. Abdomen X-Ray 11/25/17 00:00 IMPRESSION: No obstruction. Assessment & Plan - Diagnosis (1) Small bowel obstruction Plan: At this time this appears to be resolving as patient is having multiple stools. Abdomen is less distended. His main complaint prior to arrival was continued hiccups. Appreciate Dr. Cope's input and stopping by to see his patient. We again tried to contact GI but they are not available as his GI physician is on vacation. Will advance to full liquids today since he is having stools and if improved perhaps advance diet to soft tomorrow and discharge with plans for follow-up with GI. No indication for surgery at this time. Has been on antibiotics since admission. However I see no reason to continue them at this time as there is no signs of infection. We will stop his Zosyn today. - Inpatient Certification I certify that my determination is in accordance with my understanding of Medicare's requirements for reasonable and necessary INPATIENT services [42 CFR 412.3e].: Yes Medical Necessity: Risk of Diagnosis Which Will Require Inpatient Eval/Care/ Monitoring
--- NOTE | 2017-11-27 14:28 | CONSULTATION REPORT E ---
Consultation Report NAME: IBETH ORTIZ : 1960 AGE: 57Y DATE: 11/27/2017 530 A TO: JAMESON GROSS M.D. FROM: Jayshree RAI, Requesting Physician Consult requested by the surgeon and the patient requested to see. HISTORY OF PRESENT ILLNESS: This is a 57-year-old patient of mine, basically admitted to the surgicalist service on 11/24/2017 because of abdominal pain, nausea, vomiting, and possible partial small bowel obstruction. Patient's initial CT abdomen and pelvis are done, which revealed thickness in small bowel loops, which partial obstruction possibility and then patient was put on NG tube, given hydration, and started on antibiotics. The patient had a similar episode in 2014, and at that time, the obstruction was resolved with just conservative management without any surgery. The patient underwent further endoscopy and colonoscopy, and at this time, was normal. The NG tube was removed today, but patient still has ongoing hiccups, and patient was given several medications for the hiccups, and patient said still feeling like something is coming up from the abdomen to the chest, and patient feels a little hiccup and is short of breath at times, but otherwise, patient is passing the loose stools since last 24 hours, and the patient currently denied any chest pain, denied any shortness of breath. PAST MEDICAL HISTORY: 1. History of partial small bowel obstruction 2 years back. 2. History of hyperlipidemia. 3. History of sleep apnea. ALLERGIES: MELITON. PAST SURGICAL HISTORY: 1. History of cholecystectomy. 2. History of abdominal hernia repair. 3. History of heel spurs. 4. History of colonoscopy and endoscopy 2 years back. CURRENT MEDICATIONS: 1. Maalox. 2. Lovenox 40 mg daily. 3. [place] 5 mg daily. 4. Hydromorphone IV. 5. Reglan 10 mg IV q. 6 p.r.n. 6. Zofran 4 mg IV q. 6 p.r.n. 7. Protonix 40 mg IV scheduled. REVIEW OF SYSTEMS: As above. All other pertinent negative. PHYSICAL EXAMINATION: VITAL SIGNS: Temperature was 98.9, pulse was 81, blood pressure was 149/77, respirations were 18, O2 saturation 98% on 2 L nasal cannula. GENERAL: Alert, awake, oriented, no acute distress. HEAD AND NECK: Normocephalic. PERRLA. LUNGS: No wheezing, no rales, no rhonchi. HEART: S1 and S2 are present. ABDOMEN: Distended. Bowel sounds present. No tenderness. EXTREMITIES: No edema. NEUROLOGIC: The patient moves all 4 extremities. Alert, awake, oriented x3. No focal weaknesses. LABORATORY: WBC is 8.1, hemoglobin is 13.3, platelet is 221. On admission, WBC was 17.8. The patient's chemistry: Sodium is 144, potassium is 4.2, BUN is 12, creatinine is 0.94. AST and ALT are within normal limits. The patient's lipase was 84. The patient's serology was done and pending. The patient's microbiology was not done. The patient's abdomen and pelvic CT on admission was done, which shows some moderate diffuse ileitis. Infectious, inflammatory, and neoplastic process are in the differential diagnosis *------* small bowel consistent with low-grade obstruction. The patient had a repeat abdominal x-ray that was done on 11/25, which shows no obstruction. EKG with sinus rhythm. ASSESSMENT: 1. Small bowel obstruction. 2. Sleep apnea. 3. Hiccup. 4. Hyperlipidemia. PLAN: At this point, continue to follow with General Surgery. The patient probably needs a GI workup for further endoscopy, but I think there is no GI available, probably for possible outpatient. Follow with GI. The patient, at this point, currently advance the diet and continue the current medications. At this point, no sign of any infections I can see. Defer to the surgeon to stop the antibiotic. For the sleep apnea, use a CPAP machine. For the hiccups, probably continue the Zofran or Reglan and maybe continue the PPI. Continue the above medications. I think patient is getting better. Only concerns are frustrations about the hiccups. Will try to give her some Zofran and Reglan to control the symptoms and continue the PPI. Discussed with the patient and the at the bedside. I appreciate the surgeon for the consult, and will continue to follow and will make arrangement for outpatient GI workup. More than 35 minutes spent examining the patient and reviewing the records. DICTATING PHYSICIAN: JAMESON GROSS M.D. [id number] PHY#: [id number] ID: [id number] JOB#: [id number] ACCT: [id number] cc:JAMESON GROSS M.D. >
[2017-11-27 17:31] LABS: ATYPICAL PANCA <1:20 titer (Neg:<1:20); SACCHAROMYCES CEREVISIAE IGA <20.0 Units (0.0-24.9); SACCHAROMYCES CEREVISIAE IGG <20.0 Units (0.0-24.9)
[2017-11-27] MEDS: CHLORPROMAZINE HCL 25 MG TABLET PO PRN (21:52)
[2017-11-27] MEDS: HYDROCODONE/ACETAMINOPHEN 5-325 MG TABLET PO PRN (23:59)
[2017-11-28] MEDS: POTASSI CL 20 MEQ/D5NS 1L 1000 ML IV PRN (02:40)
[2017-11-28] MEDS: CHLORPROMAZINE HCL 25 MG TABLET PO PRN ×2 (08:45→16:18)
--- NOTE | 2017-11-28 09:07 | PDOC PROGRESS REPORT ---
Subjective Progress Note for:: 11/28/17 Subjective:: Feels much better today. Having bowel movements that are loose. Tolerating a liquid diet but had severe heartburn yesterday. Reason For Visit: SMALL BOWEL OBSTRUCTION Physical Exam Vital Signs: Temp Pulse Resp BP Pulse Ox 98.6 F 86 16 154/88 H 99 11/28/17 07:53 11/28/17 07:53 11/28/17 07:53 11/28/17 07:53 11/28/17 07:53 Intake & Output 11/27/17 11/28/17 11/29/17 06:59 06:59 06:59 Intake Total 4497 5848 Balance 4497 5847 General appearance: PRESENT: no acute distress, cooperative Respiratory exam: PRESENT: clear to auscultation chidi Cardiovascular exam: PRESENT: RRR GI/Abdominal exam: PRESENT: other - Soft, mildly distended, minimal tenderness diffuse with no peritoneal signs. Palpable left inguinal hernia with Valsalva but no evidence of incarceration. Results Laboratory Results: 11/26/17 03:50 11/26/17 03:50 Impressions: Acute Abdomen Series 11/24/17 01:04 IMPRESSION: Moderate small bowel obstruction or ileus. 2010 [employer]- All Rights Reserved KUB X-Ray 11/24/17 02:39 IMPRESSION: Dilated small bowel may indicate ileus or low-grade obstruction. Enteric tube. 2010 [employer]- All Rights Reserved Abdomen/Pelvis CT 11/24/17 02:40 IMPRESSION: Moderate diffuse ileitis, infectious, inflammatory, neoplastic processes are in the differential diagnosis. Dilated small bowel consistent with ileus or low-grade obstruction. Abdomen X-Ray 11/25/17 00:00 IMPRESSION: No obstruction. Assessment & Plan - Diagnosis (1) Gastroenteritis Is this a current diagnosis for this admission?: Yes Plan: From his history it does not sound like he had a bowel obstruction. He never stopped having bowel movements. He has been having loose bowel movements along with profuse nausea and vomiting. CT scan had demonstrated thickening of his small bowel. No distinct transition point. His whole clinical course is consistent with a inflammatory process in the small bowel. He has had chronic gastrointestinal problems that has been ill-defined in the past. I have discussed with the patient possibility of advancing to a solid diet and discharge patient home with follow-up with gastroenterology. He has seen gastroenterology in the past. However he and his would like a more definitive diagnosis prior to discharge. Will place the patient on clear liquids today and make him n.p.o. postmidnight for a enteroclysis study tomorrow. Will place him back on his proton pump inhibitor that he had been taking at home for his heartburn.
[2017-11-28] MEDS ORDERED: DEXTROSE 40% GEL 15 GM TUBE PO PRN ×2 (09:09)
[2017-11-28] MEDS ORDERED: GLUCAGON,HUMAN RECOMB 1 MG INJ SUBCUT PRN (09:09)
[2017-11-28] MEDS ORDERED: DEXTROSE 50%-WATER 25 GM/50 ML DISP.SYRIN IV PRN ×2 (09:09)
--- NOTE | 2017-11-28 09:48 | PDOC PROGRESS REPORT ---
Subjective Progress Note for:: 11/28/17 Subjective:: Patient's slept last night with the Thorazine and that he Is seems to be better this morning Patient's denied any abdominal pain Still have a some more stools today Patient's denied any chest pain denied any shortness of the breath Reason For Visit: SMALL BOWEL OBSTRUCTION Physical Exam Vital Signs: Temp Pulse Resp BP Pulse Ox 98.6 F 86 16 154/88 H 99 11/28/17 07:53 11/28/17 07:53 11/28/17 07:53 11/28/17 07:53 11/28/17 07:53 Intake & Output 11/27/17 11/28/17 11/29/17 06:59 06:59 06:59 Intake Total 4497 5847 Balance 4497 5847 General appearance: PRESENT: no acute distress, well-developed, well-nourished Head exam: PRESENT: atraumatic, normocephalic Eye exam: PRESENT: conjunctiva pink, EOMI, PERRLA. ABSENT: scleral icterus Ear exam: PRESENT: normal external ear exam Mouth exam: PRESENT: moist, tongue midline Neck exam: PRESENT: full ROM. ABSENT: carotid bruit, JVD, lymphadenopathy, thyromegaly Respiratory exam: PRESENT: clear to auscultation chidi Cardiovascular exam: PRESENT: RRR. ABSENT: diastolic murmur, rubs, systolic murmur Pulses: PRESENT: normal dorsalis pedis pul, +2 pedal pulses bilateral Vascular exam: PRESENT: normal capillary refill GI/Abdominal exam: PRESENT: normal bowel sounds, soft. ABSENT: distended, guarding, mass, organolmegaly, rebound, tenderness Rectal exam: PRESENT: deferred Musculoskeletal exam: PRESENT: ambulatory Neurological exam: PRESENT: alert, awake, oriented to person, oriented to place , oriented to time, oriented to situation, CN II-XII grossly intact. ABSENT: motor sensory deficit Psychiatric exam: PRESENT: appropriate affect, normal mood. ABSENT: homicidal ideation, suicidal ideation Skin exam: PRESENT: dry, intact, warm. ABSENT: cyanosis, rash Results Laboratory Results: 11/26/17 03:50 11/26/17 03:50 Impressions: Acute Abdomen Series 11/24/17 01:04 IMPRESSION: Moderate small bowel obstruction or ileus. 2011 [employer]- All Rights Reserved KUB X-Ray 11/24/17 02:39 IMPRESSION: Dilated small bowel may indicate ileus or low-grade obstruction. Enteric tube. 2011 [employer] [facility] [employer] All Rights Reserved Abdomen/Pelvis CT 11/24/17 02:40 IMPRESSION: Moderate diffuse ileitis, infectious, inflammatory, neoplastic processes are in the differential diagnosis. Dilated small bowel consistent with ileus or low-grade obstruction. Abdomen X-Ray 11/25/17 00:00 IMPRESSION: No obstruction. Assessment & Plan - Diagnosis (1) Hiccup Is this a current diagnosis for this admission?: Yes Plan: Seems to be presence combinations works will continues as needed (2) Small bowel obstruction Is this a current diagnosis for this admission?: Yes Plan: Currently all resolved follow with the surgery (3) Epigastric pain Is this a current diagnosis for this admission?: Yes Plan: From acid reflux continues to PPI (4) Hyperlipidemia Qualifiers: Hyperlipidemia type: unspecified Qualified Code(s): E78.5 - Hyperlipidemia , unspecified Is this a current diagnosis for this admission?: Yes - Time Time Spent with patient: 15-24 minutes Medications reviewed and adjusted accordingly: Yes Anticipated discharge: Home Within: within 24 hours - Inpatient Certification Medical Necessity: Need Close Monitoring Due to Risk of Patient Decompensation 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
[2017-11-28] MEDS: ENOXAPARIN SODIUM INJ 40 MG/0.4 ML DISP.SYRIN SUBCUT SCH (10:32)
[2017-11-28] MEDS ORDERED: LANSOPRAZOLE 30 MG TAB.RAP.DR PO ONE (11:00)
[2017-11-28] MEDS: MAG HYDROX/AL HYDROX/SIMETH SUSP 30 ML UDCUP PO PRN (16:18)
[2017-11-28] MEDS: LANSOPRAZOLE 30 MG TAB.RAP.DR PO SCH (16:18)
[2017-11-28] MEDS: LORATADINE 10 MG TABLET PO SCH (16:18)
[2017-11-28] MEDS: HYDROCODONE/ACETAMINOPHEN 5-325 MG TABLET PO PRN (20:40)
[2017-11-29] MEDS ORDERED: CHLORPROMAZINE HCL 50 MG TABLET ONE (00:37)
[2017-11-29] MEDS: POTASSI CL 20 MEQ/D5NS 1L 1000 ML IV PRN ×3 (01:35→20:44)
[2017-11-29] MEDS: HYDROMORPHONE HCL INJ/PF 2 MG/ML AMPULE IV PRN (01:35)
[2017-11-29] MEDS: HYDROCODONE/ACETAMINOPHEN 5-325 MG TABLET PO PRN (04:23)
[2017-11-29] MEDS: LANSOPRAZOLE 30 MG TAB.RAP.DR PO SCH ×2 (06:19→16:57)
[2017-11-29] MEDS ORDERED: LORAZEPAM 0.5 MG TABLET PO ONE (08:30)
[2017-11-29] MEDS ORDERED: BACLOFEN 10 MG TABLET PO PRN (10:00)
--- NOTE | 2017-11-29 12:52 | PDOC PROGRESS REPORT ---
Subjective Progress Note for:: 11/29/17 Subjective:: Patient is currently still doing the same with the Thorazine hiccuping still persistent This is scheduled for the small bowel series Patient's denied any abdominal pain but still having pretty good acid reflux Reason For Visit: SMALL BOWEL OBSTRUCTION Physical Exam Vital Signs: Temp Pulse Resp BP Pulse Ox 98.4 F 83 16 133/69 H 99 11/29/17 11:50 11/29/17 11:50 11/29/17 11:50 11/29/17 11:50 11/29/17 11:50 Intake & Output 11/28/17 11/29/17 11/30/17 06:59 06:59 06:59 Intake Total 5847 1905 Balance 5847 1905 General appearance: PRESENT: no acute distress, well-developed, well-nourished Head exam: PRESENT: atraumatic, normocephalic Eye exam: PRESENT: conjunctiva pink, EOMI, PERRLA. ABSENT: scleral icterus Ear exam: PRESENT: normal external ear exam Mouth exam: PRESENT: moist, tongue midline Neck exam: PRESENT: full ROM. ABSENT: carotid bruit, JVD, lymphadenopathy, thyromegaly Respiratory exam: PRESENT: clear to auscultation chidi Cardiovascular exam: PRESENT: RRR. ABSENT: diastolic murmur, rubs, systolic murmur Pulses: PRESENT: normal dorsalis pedis pul, +2 pedal pulses bilateral Vascular exam: PRESENT: normal capillary refill GI/Abdominal exam: PRESENT: normal bowel sounds, soft. ABSENT: distended, guarding, mass, organolmegaly, rebound, tenderness Rectal exam: PRESENT: deferred Musculoskeletal exam: PRESENT: ambulatory Neurological exam: PRESENT: alert, awake, oriented to person, oriented to place , oriented to time, oriented to situation, CN II-XII grossly intact. ABSENT: motor sensory deficit Psychiatric exam: PRESENT: appropriate affect, normal mood. ABSENT: homicidal ideation, suicidal ideation Skin exam: PRESENT: dry, intact, warm. ABSENT: cyanosis, rash Results Laboratory Results: 11/26/17 03:50 11/26/17 03:50 Impressions: Acute Abdomen Series 11/24/17 01:04 IMPRESSION: Moderate small bowel obstruction or ileus. 2011 [employer] [facility] [employer]- All Rights Reserved KUB X-Ray 11/24/17 02:39 IMPRESSION: Dilated small bowel may indicate ileus or low-grade obstruction. Enteric tube. 2010 [employer]- All Rights Reserved Abdomen/Pelvis CT 11/24/17 02:40 IMPRESSION: Moderate diffuse ileitis, infectious, inflammatory, neoplastic processes are in the differential diagnosis. Dilated small bowel consistent with ileus or low-grade obstruction. Abdomen X-Ray 11/25/17 00:00 IMPRESSION: No obstruction. Assessment & Plan - Diagnosis (1) Hiccup Is this a current diagnosis for this admission?: Yes Plan: Patient still not getting response with the Thorazine may be considered try the baclofen (2) Small bowel obstruction Is this a current diagnosis for this admission?: Yes Plan: Currently follow with the general surgery (3) Epigastric pain Is this a current diagnosis for this admission?: Yes Plan: History of the gastric ulcers (4) Hyperlipidemia Qualifiers: Hyperlipidemia type: unspecified Qualified Code(s): E78.5 - Hyperlipidemia , unspecified Is this a current diagnosis for this admission?: Yes Plan: Currently stable - Time Time Spent with patient: 15-24 minutes Medications reviewed and adjusted accordingly: Yes Anticipated discharge: Home Within: Other - Inpatient Certification Medical Necessity: Need Close Monitoring Due to Risk of Patient Decompensation 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
--- NOTE | 2017-11-29 12:57 | PDOC PROGRESS REPORT ---
Subjective Progress Note for:: 11/29/17 Subjective:: Abdominal pains with hiccups and reflux Reason For Visit: SMALL BOWEL OBSTRUCTION Physical Exam Vital Signs: Temp Pulse Resp BP Pulse Ox 98.4 F 83 16 133/69 H 99 11/29/17 11:50 11/29/17 11:50 11/29/17 11:50 11/29/17 11:50 11/29/17 11:50 Intake & Output 11/28/17 11/29/17 11/30/17 06:59 06:59 06:59 Intake Total 5847 1905 Balance 5847 1905 Exam: mild diffuse tenderness. Results Laboratory Results: 11/26/17 03:50 11/26/17 03:50 Impressions: Acute Abdomen Series 11/24/17 01:04 IMPRESSION: Moderate small bowel obstruction or ileus. 2010 [employer]- All Rights Reserved KUB X-Ray 11/24/17 02:39 IMPRESSION: Dilated small bowel may indicate ileus or low-grade obstruction. Enteric tube. 2010 [employer]- All Rights Reserved Abdomen/Pelvis CT 11/24/17 02:40 IMPRESSION: Moderate diffuse ileitis, infectious, inflammatory, neoplastic processes are in the differential diagnosis. Dilated small bowel consistent with ileus or low-grade obstruction. Abdomen X-Ray 11/25/17 00:00 IMPRESSION: No obstruction. Assessment & Plan - Time Time Spent with patient: 15-24 minutes - Inpatient Certification Medical Necessity: Need For IV Fluids, Need for Pain Control, Risk of Complication if Not Cared For in Hospital - Plan Summary Plan Summary: Xray apparently not able to do enteroclysis. Will just do SBFT. Has thickened small bowel wall on CT scan compatible with inflammatory bowel disease. C/O of more reflux. Will order Protonix 2x/day C/O Hiccups not controlled by thorazine/Reglan. Baclofen ordered.
[2017-11-29] MEDS: LORATADINE 10 MG TABLET PO SCH (14:50)
[2017-11-29] MEDS: ENOXAPARIN SODIUM INJ 40 MG/0.4 ML DISP.SYRIN SUBCUT SCH (14:50)
[2017-11-29] MEDS ORDERED: LORAZEPAM INJ 2 MG/1 ML VIAL ONE (15:26)
--- NOTE | 2017-11-29 15:53 | RADIOLOGY REPORT (SQ) ---
EXAM DESCRIPTION: SMALL BOWEL SERIES COMPLETED DATE/TIME: 11/29/2017 2:22 pm REASON FOR STUDY: Evaluate small bowel abnormality COMPARISON: CT abdomen pelvis 11/01/2015, 11/24/2017 Abdominal films 12/13/2016, 12/17/2016, 11/24/2017, 11/25/2017 FLUOROSCOPY TIME: 1.6 minutes 15 digital images saved to PACS. LIMITATIONS: None. PROCEDURE: Initial pulling unit floorhand image of abdomen acquired, followed by administration of oral contrast. Se rial radiographic images acquired. Fluoroscopic images recorded of the terminal ileum and other liya cated areas. All images stored on PACS. FINDINGS: Oil Producer film demonstrates air in few borderline distended small bowel loops in the mid epiga strium and right lower quadrant. Stomach and colon are decompressed. Clips right upper quadrant post cholecystectomy. Patient drank thin liquid barium. Prompt gastric emptying. Normal duodenum and proximal jejunum. Today's barium outlines borderline dilated loops with mildly thickened folds along a 10 to 15 cm long segment in the mid epigastrium/ right lower quadrant. This is abnormal but nonspecific. Bowel loop s in this area were thick walled and inflamed on prior CT exams 11/24/2017 and 11/01/2015. Distal small bowel, ascending colon are normal. Normal terminal ileum on spot views. IMPRESSION: Single abnormal small bowel loop in the right lower quadrant with mild persistent thicke yao folds and mild dilatation. No discrete intramural mass. Findings are abnormal but nonspecific COMMENT: Quality ID [id number]: Final reports for procedures using fluoroscopy that document radiation exp osure indices, or exposure time and number of fluorographic images (if radiation exposure indices are not available) TECHNICAL DOCUMENTATION: JOB ID: [id number]- All Rights Reserved
[2017-11-29] MEDS ORDERED: LORAZEPAM INJ 2 MG/1 ML VIAL IV ONE (16:00)
--- NOTE | 2017-11-29 16:16 | RADIOLOGY REPORT (SQ) ---
EXAM DESCRIPTION: CHEST SINGLE VIEW COMPLETED DATE/TIME: 11/29/2017 4:06 pm REASON FOR STUDY: shortness of breath COMPARISON: Chest films 11/24/2017, 02/23/2016 EXAM PARAMETERS: NUMBER OF VIEWS: One view. TECHNIQUE: Single frontal radiographic view of the chest acquired. RADIATION DOSE: NA LIMITATIONS: None. FINDINGS: LUNGS AND PLEURA: Bandlike atelectasis at both lung bases. No pleural effusion. No pneumothorax. MEDIASTINUM AND HILAR STRUCTURES: No masses. Contour normal. HEART AND VASCULAR STRUCTURES: Heart normal in size. Normal vasculature. BONES: No acute findings. HARDWARE: None in the chest. OTHER: No other significant finding. IMPRESSION: Mild bibasilar atelectasis TECHNICAL DOCUMENTATION: JOB ID: [id number] [employer]- All Rights Reserved
[2017-11-29] MEDS: IPRATROPIUM/ALBUTEROL 0.5-2.5 MG/3 ML AMPUL NEB PRN (17:09)
--- NOTE | 2017-11-29 18:30 | RADIOLOGY REPORT (SQ) ---
EXAM DESCRIPTION: CTA CHEST COMPLETED DATE/TIME: 11/29/2017 5:53 pm REASON FOR STUDY: R/O PE COMPARISON: None. TECHNIQUE: CT scan of the chest performed using helical scanning technique with dynamic intravenous contrast injection. Images reviewed with lung, soft tissue and bone windows. Reconstructed coronal and sagittal MPR images reviewed. Additional 3 dimensional post-processing performed to develop Maximal Intensity Projection images (MA P). All images stored on PACS. All CT scanners at this facility use dose modulation, iterative reconstruction, and/or weight based d osing when appropriate to reduce radiation dose to as low as reasonably achievable (ALARA). [facility]: Dose Right [facility]: CareDose [facility]: Dose Right [facility]: Teradose 4D [facility]: GiveNext CONTRAST TYPE AND DOSE: contrast/concentration: Isovue 370.00 mg/ml; Total Contrast Delivered: 82.0 ml; Total Saline Delivered: 80.0 ml Contrast bolus adequate for pulmonary arteries and aorta. RENAL FUNCTION: BUN 12 creatinine 0.95. RADIATION DOSE: CT Rad equipment meets quality standard of care and radiation dose reduction techniq ues were employed. CTDIvol: 23.6 - 33.1 mGy. DLP: 978 mGy-cm. . LIMITATIONS: None. FINDINGS: LUNGS AND PLEURA: No masses, infiltrates, pneumothorax. No pleural effusions, calcificati ons. AORTA AND GREAT VESSELS: No aneurysm. Contrast bolus not optimized for the aorta. HEART: No pericardial effusion. No significant coronary artery calcifications. PULMONARY ARTERIES: No emboli visualized in the main pulmonary arteries or the segmental branches. HILAR AND MEDIASTINAL STRUCTURES: No identified masses or abnormal nodes. HARDWARE: None in the chest. UPPER ABDOMEN: Diffuse fatty infiltration of the liver. No other significant findings. Limited exam . THYROID AND OTHER SOFT TISSUES: No masses. No adenopathy. BONES: No acute or significant finding. 3D MIPS: Confirm above findings. OTHER: No other significant finding. IMPRESSION: NORMAL CTA OF THE CHEST. NO PULMONARY EMBOLI. COMMENT: Quality ID # [id number]: Final reports with documentation of one or more dose reduction techniques (e.g., Automated exposure control, adjustment of the mA and/or kV according to patient size, use of iterative reconstruction technique) TECHNICAL DOCUMENTATION: JOB ID: [id number] [employer]- All Rights Reserved
[2017-11-29] MEDS: BACLOFEN 10 MG TABLET PO PRN (20:53)
[2017-11-29] MEDS: PANTOPRAZOLE SODIUM 40 MG VIAL IV SCH (21:02)
[2017-11-29] MEDS: ONDANSETRON HCL INJ/PF 4 MG/2 ML SDV IV PRN (23:40)
[2017-11-29] MEDS: LORAZEPAM INJ 2 MG/1 ML VIAL IV PRN (23:40)
[2017-11-30] MEDS ORDERED: CHLORPROMAZINE HCL 25 MG TABLET ONE (03:54)
[2017-11-30] MEDS: POTASSI CL 20 MEQ/D5NS 1L 1000 ML IV PRN ×2 (04:08→09:38)
[2017-11-30] MEDS ORDERED: LORAZEPAM INJ 2 MG/1 ML VIAL IV ONE (04:15)
[2017-11-30 04:45] LABS: ABSOLUTE EOSINOPHILS # (AUTO) 0.3 10^3/uL (0.0-0.6); ABSOLUTE LYMPHOCYTES (AUTO) 1.5 10^3/uL (0.5-4.7); ABSOLUTE MONOCYTES (AUTO) 0.8 10^3/uL (0.1-1.4); ABSOLUTE NEUT (AUTO) 5.3 10^3/uL (1.7-8.2); BASOPHILS % (AUTO) 0.5 % (0-2); EOSINOPHILS % (AUTO) 3.3 % (0-6); HEMATOCRIT 41.5 % (37.9-51.0); HEMOGLOBIN 13.8 g/dL (13.5-17.0); LYMPHOCYTES % (AUTO) 19.3 % (13-45); MEAN CORPUSCULAR HEMOGLOBIN 28.4 pg (27.0-33.4); MEAN CORPUSCULAR HGB CONC 33.3 g/dL (32.0-36.0); MEAN CORPUSCULAR VOLUME 85 fl (80-97); MONOCYTES % (AUTO) 9.9 % (3-13); PLATELET COUNT 268 10^3/uL (150-450); RED BLOOD COUNT 4.86 10^6/uL (4.35-5.55); RED CELL DISTRIBUTION WIDTH 13.5 % (11.5-14.0); TOTAL CELLS COUNTED % (AUTO) 100 %; WHITE BLOOD COUNT 7.9 10^3/uL (4.0-10.5)
[2017-11-30 05:01] LABS: ANION GAP 14 (5-19); BLOOD UREA NITROGEN 8 mg/dL (7-20); CALCIUM 9.1 mg/dL (8.4-10.2); CARBON DIOXIDE 25 mmol/L (22-30); CHLORIDE 104 mmol/L (98-107); GLUCOSE 101 mg/dL (75-110); POTASSIUM 4.4 mmol/L (3.6-5.0); SODIUM 142.5 mmol/L (137-145)
[2017-11-30] MEDS: BACLOFEN 10 MG TABLET PO PRN (06:44)
[2017-11-30] MEDS: LANSOPRAZOLE 30 MG TAB.RAP.DR PO SCH ×2 (06:44→16:32)
[2017-11-30] MEDS: PANTOPRAZOLE SODIUM 40 MG VIAL IV SCH (09:38)
[2017-11-30] MEDS: ENOXAPARIN SODIUM INJ 40 MG/0.4 ML DISP.SYRIN SUBCUT SCH (09:39)
[2017-11-30] MEDS: LORATADINE 10 MG TABLET PO SCH (11:14)
[2017-11-30] MEDS: LORAZEPAM INJ 2 MG/1 ML VIAL IV PRN (11:15)
--- NOTE | 2017-11-30 12:45 | PDOC PROGRESS REPORT ---
Subjective Progress Note for:: 11/30/17 Subjective:: Patient continue to have significant frequent hiccups with intermittent episode feeling of asphyxiation and difficulty using his CPAP machine. He reported persistent of acid reflux. He had to sit and sleep in recliner chair. He denied significant chest pain. No abdominal pain. Nausea but no vomiting since admission. Reason For Visit: SMALL BOWEL OBSTRUCTION Physical Exam Vital Signs: Temp Pulse Resp BP Pulse Ox 97.8 F 93 12 139/74 H 98 11/30/17 07:40 11/30/17 07:40 11/30/17 07:40 11/30/17 07:40 11/30/17 07:40 Intake & Output 11/29/17 11/30/17 12/01/17 06:59 06:59 06:59 Intake Total 1905 3639 Balance 1905 3639 General appearance: PRESENT: mild distress - due to hiccups. Head exam: PRESENT: atraumatic, normocephalic Eye exam: PRESENT: conjunctiva pink, EOMI, PERRLA. ABSENT: scleral icterus Mouth exam: PRESENT: moist Respiratory exam: PRESENT: clear to auscultation chidi Vascular exam: PRESENT: normal capillary refill. ABSENT: pallor GI/Abdominal exam: PRESENT: normal bowel sounds, soft. ABSENT: distended, guarding, mass, organolmegaly, rebound, tenderness Extremities exam: ABSENT: pedal edema Musculoskeletal exam: PRESENT: normal inspection Neurological exam: PRESENT: alert, awake, oriented to person, oriented to place , oriented to time, oriented to situation, CN II-XII grossly intact. ABSENT: motor sensory deficit Psychiatric exam: PRESENT: anxious - due to difficulty with breathing and hiccups Skin exam: PRESENT: dry, intact, warm. ABSENT: cyanosis, rash Results Laboratory Results: 11/30/17 04:21 11/30/17 04:21 11/30/17 11/30/17 04:21 04:21 WBC 7.9 RBC 4.86 Hgb 13.8 Hct 41.5 MCV 85 MCH 28.4 MCHC 33.3 RDW 13.5 Plt Count 268 Seg Neutrophils % 67.0 Lymphocytes % 19.3 Monocytes % 9.9 Eosinophils % 3.3 Basophils % 0.5 Absolute Neutrophils 5.3 Absolute Lymphocytes 1.5 Absolute Monocytes 0.8 Absolute Eosinophils 0.3 Absolute Basophils 0.0 Sodium 142.5 Potassium 4.4 Chloride 104 Carbon Dioxide 25 Anion Gap 14 BUN 8 Creatinine 0.85 Est GFR ( Amer) > 60 Est GFR (Non-Af Amer) > 60 Glucose 101 Calcium 9.1 Impressions: Acute Abdomen Series 11/24/17 01:04 IMPRESSION: Moderate small bowel obstruction or ileus. 2010 [employer]- All Rights Reserved KUB X-Ray 11/24/17 02:39 IMPRESSION: Dilated small bowel may indicate ileus or low-grade obstruction. Enteric tube. 2010 [employer]- All Rights Reserved Abdomen/Pelvis CT 11/24/17 02:40 IMPRESSION: Moderate diffuse ileitis, infectious, inflammatory, neoplastic processes are in the differential diagnosis. Dilated small bowel consistent with ileus or low-grade obstruction. Abdomen X-Ray 11/25/17 00:00 IMPRESSION: No obstruction. Chest X-Ray 11/29/17 00:00 IMPRESSION: Mild bibasilar atelectasis Chest/Abdomen CTA 11/29/17 00:00 IMPRESSION: NORMAL CTA OF THE CHEST. NO PULMONARY EMBOLI. Small Bowel X-Ray 11/29/17 00:00 IMPRESSION: Single abnormal small bowel loop in the right lower quadrant with mild persistent thickened folds and mild dilatation. No discrete intramural mass. Findings are abnormal but nonspecific Assessment & Plan - Diagnosis (1) Hiccup Is this a current diagnosis for this admission?: Yes Plan: See covering attending physician orders. (2) GERD (gastroesophageal reflux disease) Qualifiers: Esophagitis presence: esophagitis presence not specified Qualified Code(s) : K21.9 - Gastro-esophageal reflux disease without esophagitis Is this a current diagnosis for this admission?: Yes Plan: See covering attending physician orders. (3) ANA on CPAP Is this a current diagnosis for this admission?: Yes Plan: See covering attending physician orders. (4) Small bowel obstruction Is this a current diagnosis for this admission?: Yes Plan: See covering attending physician orders. - Time Time Spent with patient: 35 or more minutes Medications reviewed and adjusted accordingly: Yes Anticipated discharge: Home Within: Other - Inpatient Certification Based on my medical assessment, after consideration of the patient's comorbidities, presenting symptoms, or acuity I expect that the services needed warrant INPATIENT care.: Yes I certify that my determination is in accordance with my understanding of Medicare's requirements for reasonable and necessary INPATIENT services [42 CFR 412.3e].: Yes Medical Necessity: Need Close Monitoring Due to Risk of Patient Decompensation, Need For IV Fluids, Need For Continuous Telemetry Monitoring, Risk of Complication if Not Cared For in Hospital Post Hospital Care: D/C [employer] Management Adviser Documentation - Plan Summary Plan Summary: See covering attending physician orders.
[2017-11-30] MEDS ORDERED: CHLORPROMAZINE HCL INJ 25 MG/1 ML AMPULE IV ONE ×2 (13:30→21:30)
[2017-11-30] MEDS: NORMAL SALINE 1000 ML 1,000 ML IV PRN (13:42)
[2017-11-30] MEDS: ONDANSETRON HCL INJ/PF 4 MG/2 ML SDV IV PRN (14:18)
[2017-11-30] MEDS: SUCRALFATE SUSP 1 GM/10 ML UDCUP PO SCH ×2 (16:32→22:44)
[2017-12-01] MEDS: IPRATROPIUM/ALBUTEROL 0.5-2.5 MG/3 ML AMPUL NEB PRN ×3 (00:11→21:30)
[2017-12-01] MEDS ORDERED: CHLORPROMAZINE HCL INJ 25 MG/1 ML AMPULE ONE (00:38)
[2017-12-01] MEDS: NORMAL SALINE 1000 ML 1,000 ML IV PRN ×2 (01:58→12:45)
[2017-12-01] MEDS: ONDANSETRON HCL INJ/PF 4 MG/2 ML SDV IV PRN (02:54)
[2017-12-01 06:15] LABS: ANION GAP 11 (5-19); BLOOD UREA NITROGEN 9 mg/dL (7-20); CALCIUM 9.3 mg/dL (8.4-10.2); CARBON DIOXIDE 30 mmol/L (22-30); CHLORIDE 102 mmol/L (98-107); GLUCOSE 89 mg/dL (75-110); POTASSIUM 3.8 mmol/L (3.6-5.0)
[2017-12-01] MEDS: LANSOPRAZOLE 30 MG TAB.RAP.DR PO SCH ×2 (06:22→17:10)
[2017-12-01] MEDS: GABAPENTIN 300 MG CAPSULE PO SCH ×3 (06:23→21:57)
[2017-12-01] MEDS: SUCRALFATE SUSP 1 GM/10 ML UDCUP PO SCH ×4 (07:54→21:57)
[2017-12-01] MEDS: ENOXAPARIN SODIUM INJ 40 MG/0.4 ML DISP.SYRIN SUBCUT SCH (09:08)
[2017-12-01] MEDS: LORATADINE 10 MG TABLET PO SCH (11:20)
--- NOTE | 2017-12-01 11:35 | PDOC PROGRESS REPORT ---
Subjective Progress Note for:: 12/01/17 Subjective:: Patient reported some improvement in his hiccups but continue to experience intermittent spells with increase belching. No chest pain. Episodes of difficulty with breathing due to severe hiccups spells. No nausea or vomiting. No abdominal pain. Reason For Visit: SMALL BOWEL OBSTRUCTION Physical Exam Vital Signs: Temp Pulse Resp BP Pulse Ox 98.0 F 95 20 142/87 H 97 12/01/17 08:18 12/01/17 08:18 12/01/17 08:18 12/01/17 08:18 12/01/17 08:18 Intake & Output 11/30/17 12/01/17 12/02/17 06:59 06:59 06:59 Intake Total 3639 3806 Balance 3639 3806 Physical Exam: General appearance: PRESENT: mild distress - due to hiccups. Head exam: PRESENT: atraumatic, normocephalic Eye exam: PRESENT: conjunctiva pink, EOMI, PERRLA. ABSENT: scleral icterus Mouth exam: PRESENT: moist Respiratory exam: PRESENT: clear to auscultation chidi Vascular exam: PRESENT: normal capillary refill. ABSENT: pallor GI/Abdominal exam: PRESENT: normal bowel sounds, soft. ABSENT: distended, guarding, mass, organomegaly, rebound, tenderness Extremities exam: ABSENT: pedal edema Musculoskeletal exam: PRESENT: normal inspection Neurological exam: PRESENT: alert, awake, oriented to person, oriented to place , oriented to time, oriented to situation, CN II-XII grossly intact. ABSENT: motor sensory deficit Psychiatric exam: PRESENT: anxious - due to difficulty with breathing and hiccups Skin exam: PRESENT: dry, intact, warm. ABSENT: cyanosis, rash Results Laboratory Results: 11/30/17 04:21 12/01/17 04:31 12/01/17 04:31 Sodium 143.0 Potassium 3.8 Chloride 102 Carbon Dioxide 30 Anion Gap 11 BUN 9 Creatinine 0.96 Est GFR ( Amer) > 60 Est GFR (Non-Af Amer) > 60 Glucose 89 Calcium 9.3 Impressions: Acute Abdomen Series 11/24/17 01:04 IMPRESSION: Moderate small bowel obstruction or ileus. 2010 [employer]- All Rights Reserved KUB X-Ray 11/24/17 02:39 IMPRESSION: Dilated small bowel may indicate ileus or low-grade obstruction. Enteric tube. 2010 [employer]- All Rights Reserved Abdomen/Pelvis CT 11/24/17 02:40 IMPRESSION: Moderate diffuse ileitis, infectious, inflammatory, neoplastic processes are in the differential diagnosis. Dilated small bowel consistent with ileus or low-grade obstruction. Abdomen X-Ray 11/25/17 00:00 IMPRESSION: No obstruction. Chest X-Ray 11/29/17 00:00 IMPRESSION: Mild bibasilar atelectasis Chest/Abdomen CTA 11/29/17 00:00 IMPRESSION: NORMAL CTA OF THE CHEST. NO PULMONARY EMBOLI. Small Bowel X-Ray 11/29/17 00:00 IMPRESSION: Single abnormal small bowel loop in the right lower quadrant with mild persistent thickened folds and mild dilatation. No discrete intramural mass. Findings are abnormal but nonspecific Assessment & Plan - Diagnosis (1) Hiccup Is this a current diagnosis for this admission?: Yes (2) GERD (gastroesophageal reflux disease) Qualifiers: Esophagitis presence: esophagitis presence not specified Qualified Code(s) : K21.9 - Gastro-esophageal reflux disease without esophagitis Is this a current diagnosis for this admission?: Yes (3) ANA on CPAP Is this a current diagnosis for this admission?: Yes (4) Small bowel obstruction Is this a current diagnosis for this admission?: Yes - Time Time Spent with patient: 25-34 minutes Medications reviewed and adjusted accordingly: Yes Anticipated discharge: Home Within: Other - Inpatient Certification Based on my medical assessment, after consideration of the patient's comorbidities, presenting symptoms, or acuity I expect that the services needed warrant INPATIENT care.: Yes I certify that my determination is in accordance with my understanding of Medicare's requirements for reasonable and necessary INPATIENT services [42 CFR 412.3e].: Yes Medical Necessity: Need Close Monitoring Due to Risk of Patient Decompensation, Need For IV Fluids, Need For Continuous Telemetry Monitoring, Risk of Complication if Not Cared For in Hospital 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 Start on Simethocone 120 mg po qpchs. Maintain on all other current medication management.
[2017-12-01] MEDS: SIMETHICONE 80 MG TAB.CHEW PO SCH ×3 (12:45→21:56)
--- NOTE | 2017-12-01 14:47 | PDOC PROGRESS REPORT ---
Subjective Progress Note for:: 12/01/17 Subjective:: Still with hiccups. + Flatus and tolerating soft diet. Reason For Visit: SMALL BOWEL OBSTRUCTION Physical Exam Vital Signs: Temp Pulse Resp BP Pulse Ox 97.5 F 91 15 139/79 H 99 12/01/17 12:09 12/01/17 12:55 12/01/17 12:55 12/01/17 12:09 12/01/17 12:09 Intake & Output 11/30/17 12/01/17 12/02/17 06:59 06:59 06:59 Intake Total 3639 3806 Balance 3639 3806 Exam: abd is soft and nontender Results Laboratory Results: 11/30/17 04:21 12/01/17 04:31 12/01/17 04:31 Sodium 143.0 Potassium 3.8 Chloride 102 Carbon Dioxide 30 Anion Gap 11 BUN 9 Creatinine 0.96 Est GFR ( Amer) > 60 Est GFR (Non-Af Amer) > 60 Glucose 89 Calcium 9.3 Impressions: Acute Abdomen Series 11/24/17 01:04 IMPRESSION: Moderate small bowel obstruction or ileus. 2010 [employer]- All Rights Reserved KUB X-Ray 11/24/17 02:39 IMPRESSION: Dilated small bowel may indicate ileus or low-grade obstruction. Enteric tube. 2010 [employer]- All Rights Reserved Abdomen/Pelvis CT 11/24/17 02:40 IMPRESSION: Moderate diffuse ileitis, infectious, inflammatory, neoplastic processes are in the differential diagnosis. Dilated small bowel consistent with ileus or low-grade obstruction. Abdomen X-Ray 11/25/17 00:00 IMPRESSION: No obstruction. Chest X-Ray 11/29/17 00:00 IMPRESSION: Mild bibasilar atelectasis Chest/Abdomen CTA 11/29/17 00:00 IMPRESSION: NORMAL CTA OF THE CHEST. NO PULMONARY EMBOLI. Small Bowel X-Ray 11/29/17 00:00 IMPRESSION: Single abnormal small bowel loop in the right lower quadrant with mild persistent thickened folds and mild dilatation. No discrete intramural mass. Findings are abnormal but nonspecific Assessment & Plan - Time Time Spent with patient: 15-24 minutes - Plan Summary Plan Summary: Small bowel obstruction resolved. Will transfer to medical service of Dr Cope.
[2017-12-02] MEDS: IPRATROPIUM/ALBUTEROL 0.5-2.5 MG/3 ML AMPUL NEB PRN ×2 (04:23→21:45)
[2017-12-02] MEDS: GABAPENTIN 300 MG CAPSULE PO SCH ×3 (05:36→21:28)
[2017-12-02] MEDS: HYDROCODONE/ACETAMINOPHEN 5-325 MG TABLET PO PRN (05:36)
[2017-12-02] MEDS: LANSOPRAZOLE 30 MG TAB.RAP.DR PO SCH ×2 (05:36→17:23)
[2017-12-02 06:19] LABS: ANION GAP 10 (5-19); BLOOD UREA NITROGEN 12 mg/dL (7-20); CALCIUM 9.2 mg/dL (8.4-10.2); CARBON DIOXIDE 29 mmol/L (22-30); CHLORIDE 103 mmol/L (98-107); GLUCOSE 91 mg/dL (75-110); POTASSIUM 3.9 mmol/L (3.6-5.0); SODIUM 141.8 mmol/L (137-145)
[2017-12-02] MEDS: SUCRALFATE SUSP 1 GM/10 ML UDCUP PO SCH ×4 (08:50→21:28)
[2017-12-02] MEDS: SIMETHICONE 80 MG TAB.CHEW PO SCH ×4 (08:50→21:28)
--- NOTE | 2017-12-02 09:17 | PDOC PROGRESS REPORT ---
Subjective Subjective:: Patient reports he still hiccuping; he is having bowel function; he is tolerating a regular diet. Reason For Visit: SMALL BOWEL OBSTRUCTION Physical Exam Vital Signs: Temp Pulse Resp BP Pulse Ox 98.5 F 100 18 154/75 H 97 12/02/17 00:00 12/02/17 04:25 12/02/17 04:25 12/02/17 00:00 12/02/17 08:24 Intake & Output 12/01/17 12/02/17 12/03/17 06:59 06:59 06:59 Intake Total 3806 3360 Balance 3806 3360 General appearance: PRESENT: no acute distress GI/Abdominal exam: PRESENT: other - Soft, nontender no peritoneal signs no rigidity Results Laboratory Results: 11/30/17 04:21 12/02/17 05:18 12/02/17 05:18 Sodium 141.8 Potassium 3.9 Chloride 103 Carbon Dioxide 29 Anion Gap 10 BUN 12 Creatinine 0.97 Est GFR ( Amer) > 60 Est GFR (Non-Af Amer) > 60 Glucose 91 Calcium 9.2 Impressions: Acute Abdomen Series 11/24/17 01:04 IMPRESSION: Moderate small bowel obstruction or ileus. 2010 [employer]- All Rights Reserved KUB X-Ray 11/24/17 02:39 IMPRESSION: Dilated small bowel may indicate ileus or low-grade obstruction. Enteric tube. 2010 [employer]- All Rights Reserved Abdomen/Pelvis CT 11/24/17 02:40 IMPRESSION: Moderate diffuse ileitis, infectious, inflammatory, neoplastic processes are in the differential diagnosis. Dilated small bowel consistent with ileus or low-grade obstruction. Abdomen X-Ray 11/25/17 00:00 IMPRESSION: No obstruction. Chest X-Ray 11/29/17 00:00 IMPRESSION: Mild bibasilar atelectasis Chest/Abdomen CTA 11/29/17 00:00 IMPRESSION: NORMAL CTA OF THE CHEST. NO PULMONARY EMBOLI. Small Bowel X-Ray 11/29/17 00:00 IMPRESSION: Single abnormal small bowel loop in the right lower quadrant with mild persistent thickened folds and mild dilatation. No discrete intramural mass. Findings are abnormal but nonspecific Assessment & Plan - Diagnosis (1) Small bowel obstruction Is this a current diagnosis for this admission?: Yes Plan: Small bowel obstruction resolved; patient having reliable bowel function; etiology of patient's hiccups uncertain. Plan: 1. Indication for surgical intervention; will sign off at this time. 2. Patient can follow-up with gastroenterology on an outpatient basis; explained to the patient and his due to the holidays, house subspecialty services may be limited to unavailable.
[2017-12-02] MEDS ORDERED: LORATADINE 10 MG TABLET PO ONE (09:30)
[2017-12-02] MEDS ORDERED: ENOXAPARIN SODIUM INJ 40 MG/0.4 ML DISP.SYRIN SUBCUT ONE (09:30)
--- NOTE | 2017-12-02 15:45 | PDOC PROGRESS REPORT ---
Subjective Progress Note for:: 12/02/17 Subjective:: Patient reported less hiccups so far today. Express concern about chest and nasal congestion. Some relief with nebulizer therapy regarding his breathing. No fever or chills. No chest pain. No nausea, vomiting, or abdominal pain. Reason For Visit: SMALL BOWEL OBSTRUCTION Physical Exam Vital Signs: Temp Pulse Resp BP Pulse Ox 98.3 F 100 20 143/76 H 93 12/02/17 11:44 12/02/17 11:44 12/02/17 11:44 12/02/17 11:44 12/02/17 11:44 Intake & Output 12/01/17 12/02/17 12/03/17 06:59 06:59 06:59 Intake Total 3806 3360 Balance 3806 3360 Physical Exam: General appearance: PRESENT: mild distress - due to hiccups. Head exam: PRESENT: atraumatic, normocephalic Eye exam: PRESENT: conjunctiva pink, EOMI, PERRLA. ABSENT: scleral icterus Mouth exam: PRESENT: moist Respiratory exam: PRESENT: clear to auscultation chidi Vascular exam: PRESENT: normal capillary refill. ABSENT: pallor GI/Abdominal exam: PRESENT: normal bowel sounds, soft. ABSENT: distended, guarding, mass, organomegaly, rebound, tenderness Extremities exam: ABSENT: pedal edema Musculoskeletal exam: PRESENT: normal inspection Neurological exam: PRESENT: alert, awake, oriented to person, oriented to place , oriented to time, oriented to situation, CN II-XII grossly intact. ABSENT: motor sensory deficit Psychiatric exam: PRESENT: anxious - due to difficulty with breathing and hiccups Skin exam: PRESENT: dry, intact, warm. ABSENT: cyanosis, rash Results Laboratory Results: 11/30/17 04:21 12/02/17 05:18 12/02/17 05:18 Sodium 141.8 Potassium 3.9 Chloride 103 Carbon Dioxide 29 Anion Gap 10 BUN 12 Creatinine 0.97 Est GFR ( Amer) > 60 Est GFR (Non-Af Amer) > 60 Glucose 91 Calcium 9.2 Impressions: Acute Abdomen Series 11/24/17 01:04 IMPRESSION: Moderate small bowel obstruction or ileus. 2010 [employer]- All Rights Reserved KUB X-Ray 11/24/17 02:39 IMPRESSION: Dilated small bowel may indicate ileus or low-grade obstruction. Enteric tube. 2010 [employer]- All Rights Reserved Abdomen/Pelvis CT 11/24/17 02:40 IMPRESSION: Moderate diffuse ileitis, infectious, inflammatory, neoplastic processes are in the differential diagnosis. Dilated small bowel consistent with ileus or low-grade obstruction. Abdomen X-Ray 11/25/17 00:00 IMPRESSION: No obstruction. Chest X-Ray 11/29/17 00:00 IMPRESSION: Mild bibasilar atelectasis Chest/Abdomen CTA 11/29/17 00:00 IMPRESSION: NORMAL CTA OF THE CHEST. NO PULMONARY EMBOLI. Small Bowel X-Ray 11/29/17 00:00 IMPRESSION: Single abnormal small bowel loop in the right lower quadrant with mild persistent thickened folds and mild dilatation. No discrete intramural mass. Findings are abnormal but nonspecific Assessment & Plan - Diagnosis (1) Hiccup Is this a current diagnosis for this admission?: Yes (2) GERD (gastroesophageal reflux disease) Qualifiers: Esophagitis presence: esophagitis presence not specified Qualified Code(s) : K21.9 - Gastro-esophageal reflux disease without esophagitis Is this a current diagnosis for this admission?: Yes (3) ANA on CPAP Is this a current diagnosis for this admission?: Yes (4) Small bowel obstruction Is this a current diagnosis for this admission?: Yes - Time Time Spent with patient: 25-34 minutes Medications reviewed and adjusted accordingly: Yes Anticipated discharge: Home Within: Other - Inpatient Certification Based on my medical assessment, after consideration of the patient's comorbidities, presenting symptoms, or acuity I expect that the services needed warrant INPATIENT care.: Yes I certify that my determination is in accordance with my understanding of Medicare's requirements for reasonable and necessary INPATIENT services [42 CFR 412.3e].: Yes Medical Necessity: Need Close Monitoring Due to Risk of Patient Decompensation, Need For IV Fluids, Need For Continuous Telemetry Monitoring, Need for Nebulizer Therapy and Monitoring of Response, Risk of Complication if Not Cared For in Hospital Post Hospital Care: D/C 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
[2017-12-02] MEDS ORDERED: FLUTICASONE NASAL SPRAY 50 MCG/SPRY 120 SPRAY/16 GM NASL SCH (18:00)
[2017-12-03] MEDS: GABAPENTIN 300 MG CAPSULE PO SCH (05:57)
[2017-12-03] MEDS: LANSOPRAZOLE 30 MG TAB.RAP.DR PO SCH (05:57)
[2017-12-03] MEDS ORDERED: ENOXAPARIN SODIUM INJ 40 MG/0.4 ML DISP.SYRIN SUBCUT SCH (06:00)
[2017-12-03] MEDS ORDERED: LORATADINE 10 MG TABLET PO SCH (06:00)
[2017-12-03 08:37] VITALS: BP 149/84
[2017-12-03] MEDS ORDERED: ALBUTEROL SULFATE HFA (90 MCG/PUFF) 200 PUFF/8.5 GM MDI IH PRN (08:47)
--- NOTE | 2017-12-03 11:20 | PDOC DISCHARGE SUMMARY ---
General - Admit/Disc Date/PCP Admission Date/Primary Care Provider: 11/24/17 03:18 JAMESON GROSS MD Discharge Date: 12/03/17 - Discharge Diagnosis (1) Hiccup Is this a current diagnosis for this admission?: Yes Summary: [place] all resolved unclear etiologyFollow-up outpatients GI for further evaluations (2) Small bowel obstruction Is this a current diagnosis for this admission?: Yes Summary: Currently all resolved (3) Epigastric pain Is this a current diagnosis for this admission?: Yes Summary: Most likely a from the peptic ulcer disease continues the Carafate and the Protonix and follow-up outpatients Dr. Zimmer (4) Hyperlipidemia Is this a current diagnosis for this admission?: Yes Summary: Continues to Crestor (5) ANA on CPAP Is this a current diagnosis for this admission?: Yes Summary: Bronchitis continues uses CPAP (6) Seasonal allergies Is this a current diagnosis for this admission?: Yes Summary: Continues to allergy medications with some mild bronchitis use the pro-air as needed we will get the PFT in office - Additional Information Discharge Diet: Regular Discharge Activity: Activity As Tolerated, Balance Activity w/Rest Prescriptions: Gabapentin [Neurontin 300 mg Capsule] 300 mg PO Q8 #90 capsule Omeprazole 40 mg PO BID #60 capsule.dr Jean [Mylicon 80 mg Chewable Tablet] 120 mg PO PCHS #30 tab.chew Sucralfate [Carafate Susp 1 gm/10 ml Udcup] 1 gm PO ACHS #60 udc Home Medications: Loratadine 1 tab PO DAILY 11/23/17 Gabapentin [Neurontin 300 mg Capsule] 300 mg PO Q8 #90 capsule 12/03/17 Omeprazole 40 mg PO BID #60 capsule. 12/03/17 Francisethicone [Mylicon 80 mg Chewable Tablet] 120 mg PO PCHS #30 tab.chew Sucralfate [Carafate Susp 1 gm/10 ml Udcup] 1 gm PO ACHS #60 udc 12/03/17 History of Present Illness History of Present Illness: IBETH ORTIZ is a 57 year old male Patient was actually admitted in the surgical service with a small bowel obstructions abdominal pain and the discomfort and patient started developing that he cup in consult by me and transported to the my service Hospital Course Hospital Course: This 57-year-old male basically admitted in the surgical service with abdominal pain possible small bowel obstructions and patient underwent for the NG tube placement and conservative management and patient's seen by the surgery Patient also started developing that he cup and the patient's at this point pertinent medical services will try the several medication including Zofran and Reglan and Thorazine Patient underwent for the CT scan of the chest to rule out any underlying conditions which is all negatives Patients finally that he Is all resolved patients move around patient's p.o. intake is good Put into the surgical is no need for any surgical evaluations for the small bowel obstruction all resolved Patient also significant acid reflux and a history of the gastric ulcers which patient need a follow-up outpatients Dr. Zimmer and the patient's put on a PPI and Carafate Patients also has some mild cough and congestion with some mild bronchitis which treated with the conservative managements no need for an antibiotic Very extensive discussions with the patient and the regarding the patient' s all current conditions and the patient's discharge home and follow outpatient in couple of days and make appointment to see a GI Physical Exam Vital Signs: Temp Pulse Resp BP Pulse Ox 98.4 F 88 20 149/84 H 94 12/03/17 08:24 12/03/17 08:24 12/03/17 08:24 12/03/17 08:24 12/03/17 08:24 Intake & Output 12/02/17 12/03/17 12/04/17 06:59 06:59 06:59 Intake Total 3360 1123 Balance 3360 1123 General appearance: PRESENT: no acute distress, well-developed, well-nourished Head exam: PRESENT: atraumatic, normocephalic Eye exam: PRESENT: conjunctiva pink, EOMI, PERRLA. ABSENT: scleral icterus Ear exam: PRESENT: normal external ear exam Mouth exam: PRESENT: moist, tongue midline Neck exam: PRESENT: full ROM. ABSENT: carotid bruit, JVD, lymphadenopathy, thyromegaly Respiratory exam: PRESENT: clear to auscultation chidi Cardiovascular exam: PRESENT: RRR. ABSENT: diastolic murmur, rubs, systolic murmur Pulses: PRESENT: normal dorsalis pedis pul, +2 pedal pulses bilateral Vascular exam: PRESENT: normal capillary refill GI/Abdominal exam: PRESENT: normal bowel sounds, soft. ABSENT: distended, guarding, mass, organolmegaly, rebound, tenderness Rectal exam: PRESENT: deferred Extremities exam: ABSENT: full ROM, left AKA, right AKA, left BKA, right BKA, calf tenderness, joint swelling, pedal edema, tenderness, other Musculoskeletal exam: PRESENT: ambulatory Neurological exam: PRESENT: alert, awake, oriented to person, oriented to place , oriented to time, oriented to situation, CN II-XII grossly intact. ABSENT: motor sensory deficit Psychiatric exam: PRESENT: appropriate affect, normal mood. ABSENT: homicidal ideation, suicidal ideation Skin exam: PRESENT: dry, intact, warm. ABSENT: cyanosis, rash Results Laboratory Results: 11/30/17 04:21 12/02/17 05:18 Impressions: Acute Abdomen Series 11/24/17 01:04 IMPRESSION: Moderate small bowel obstruction or ileus. 2010 [employer]- All Rights Reserved KUB X-Ray 11/24/17 02:39 IMPRESSION: Dilated small bowel may indicate ileus or low-grade obstruction. Enteric tube. 2010 [employer]- All Rights Reserved Abdomen/Pelvis CT 11/24/17 02:40 IMPRESSION: Moderate diffuse ileitis, infectious, inflammatory, neoplastic processes are in the differential diagnosis. Dilated small bowel consistent with ileus or low-grade obstruction. Abdomen X-Ray 11/25/17 00:00 IMPRESSION: No obstruction. Chest X-Ray 11/29/17 00:00 IMPRESSION: Mild bibasilar atelectasis Chest/Abdomen CTA 11/29/17 00:00 IMPRESSION: NORMAL CTA OF THE CHEST. NO PULMONARY EMBOLI. Small Bowel X-Ray 11/29/17 00:00 IMPRESSION: Single abnormal small bowel loop in the right lower quadrant with mild persistent thickened folds and mild dilatation. No discrete intramural mass. Findings are abnormal but nonspecific Plan Time Spent: Greater than 30 Minutes - Discharge home with the stable conditions follow outpatients GI
== END 2017-12-03 09:27 | disposition home or self-care (01) | DRG 390 ==
LOC: ER 23:34 → EH 11-24 03:18 → 4S 11-24 04:40 → 5 11-24 16:41
PROVIDERS: ADMIT Colon & Rectal Surgery; ATTEND Colon & Rectal Surgery
PROC: 3E0234Z Introduction of Serum, Toxoid and Vaccine into Muscle, Percutaneous Approach (ICD-10-PCS; principal; 2017-12-03)
DX: K56.609 Unspecified intestinal obstruction, unspecified as to partial versus complete obstruction (principal); R06.6 Hiccough; K27.9 Peptic ulcer, site unspecified, unspecified as acute or chronic, without hemorrhage or perforation; K52.9 Noninfective gastroenteritis and colitis, unspecified; E78.5 Hyperlipidemia, unspecified; J30.2 Other seasonal allergic rhinitis; G47.33 Obstructive sleep apnea (adult) (pediatric); Z79.01 Long term (current) use of anticoagulants; Z79.899 Other long term (current) drug therapy; Z23 Encounter for immunization
CPT/HCPCS: 36415; 71010; 71275; 74000; 74020; 74022; 74177; 74250; 80048; 80053; 85025; 85027; 86256; 90686; 93005; 93010; 94640; 94660; 96374; 99285; J1170; J1650; J2060; J2405; J2543; J2765; J3230; J3480; J3490; J7030; J7620; S0164

== ENCOUNTER 2017-12-16 10:43 | Day surgery (SDC) | payer BC ==
[~2017-12-16 10:43] MED LIST: FENTANYL CITRATE INJ/PF 100 MCG/2 ML AMPUL ONE; MIDAZOLAM 2 MG/2 ML INJ ONE; PROPOFOL INJ 200 MG/20 ML VIAL IV ONE
[2017-12-16] MEDS ORDERED: PROPOFOL INJ 200 MG/20 ML VIAL IV ONE (11:55)
[2017-12-16 12:30] VITALS: BP 131/81
--- NOTE | 2017-12-16 13:39 | Operative Report ---
Operative Report DATE OF SURGERY: 12/16/17 Operative Report: The risks benefits and alternatives of the procedure explained to the patient in detail and informed consent is obtained.A GIF Olympus video scope was inserted into the patient's mouth and hypopharynx, the esophagus is identified intubated and insufflated, the scope was then advanced through the esophagus stomach and duodenum, the scope was advanced to approximately 180 cm. Retroflexion maneuver is done the esophagus stomach and first and second portions of the duodenum examined PREOPERATIVE DIAGNOSIS: Question small bowel obstruction POSTOPERATIVE DIAGNOSIS: Patent loops of the duodenum. Scope was advanced approximately 180 cm. No obstruction seen. Mild gastritis noted status post biopsy rule out Helicobacter pylori OPERATION: SMINT with biopsy SURGEON: BEN MARTINEZ ANESTHESIA: LMAC TISSUE REMOVED OR ALTERED: As noted above. COMPLICATIONS: None. ESTIMATED BLOOD LOSS: None. INTRAOPERATIVE FINDINGS: As noted above. PROCEDURE: Patient tolerated procedure well. No immediate postprocedure complications are noted. Patient discharged in good condition. Discharge date 12/16/2017. Discharge diet: Regular. Discharge activity: Regular. 2-3 week follow-up to discuss findings. Patient is instructed call the office or proceed to the emergency room should there be any further problems or questions. We will wait on pathology.
== END 2017-12-16 12:25 | disposition home or self-care (01) ==
LOC: END 10:43
PROVIDERS: ATTEND Internal Medicine Gastroenterology
PROC: 0DB68ZX Excision of Stomach, Via Natural or Artificial Opening Endoscopic, Diagnostic (ICD-10-PCS; principal; 2017-12-16 13:30)
DX: K29.50 Unspecified chronic gastritis without bleeding (principal); K31.89 Other diseases of stomach and duodenum; G47.33 Obstructive sleep apnea (adult) (pediatric); Z79.899 Other long term (current) drug therapy; Z79.51 Long term (current) use of inhaled steroids
CPT/HCPCS: 44361; 88342 ×2; 88305 ×2; J2704; J2250; J3010

== ENCOUNTER 2018-06-09 13:18 | Inpatient (IN) | payer BC ==
[2018-06-09] MEDS ORDERED: NORMAL SALINE 1000 ML 1,000 ML IV ONE (14:46)
[2018-06-09 15:02] LABS: ABSOLUTE LYMPHOCYTES (AUTO) 1.6 10^3/uL (0.5-4.7); ABSOLUTE MONOCYTES (AUTO) 0.9 10^3/uL (0.1-1.4); ABSOLUTE NEUT (AUTO) 8.3 10^3/uL (1.7-8.2); BASOPHILS % (AUTO) 0.2 % (0-2); EOSINOPHILS % (AUTO) 0.1 % (0-6); HEMATOCRIT 48.8 % (37.9-51.0); LYMPHOCYTES % (AUTO) 14.6 % (13-45); MEAN CORPUSCULAR HEMOGLOBIN 29.2 pg (27.0-33.4); MEAN CORPUSCULAR HGB CONC 34.8 g/dL (32.0-36.0); MEAN CORPUSCULAR VOLUME 84 fl (80-97); MONOCYTES % (AUTO) 8.3 % (3-13); PLATELET COUNT 288 10^3/uL (150-450); RED BLOOD COUNT 5.82 10^6/uL (4.35-5.55); RED CELL DISTRIBUTION WIDTH 13.5 % (11.5-14.0); SEGMENTED NEUTROPHILS % (AUTO) 76.8 % (42-78); TOTAL CELLS COUNTED % (AUTO) 100 %; WHITE BLOOD COUNT 10.8 10^3/uL (4.0-10.5)
[2018-06-09 15:11] LABS: APPEARANCE,URINE CLOUDY; BILIRUBIN,URINE NEGATIVE (NEGATIVE); GLUCOSE, URINE NEGATIVE (NEGATIVE); KETONES,URINE NEGATIVE (NEGATIVE); LEUKOCYTE ESTERASE,URINE NEGATIVE (NEGATIVE); NITRITE,URINE NEGATIVE (NEGATIVE); PROTEIN,URINE 30 mg/dL (NEGATIVE); URINE SPECIFIC GRAVITY 1.027
[2018-06-09] MEDS ORDERED: DIPHENHYDRAMINE HCL 50 MG/ML VIAL IV ONE (15:13)
[2018-06-09] MEDS ORDERED: PROCHLORPERAZINE EDISYLATE INJ 10 MG/2 ML VIAL IV ONE (15:13)
[2018-06-09 15:15] LABS: COLOR,URINE YELLOW
--- NOTE | 2018-06-09 15:18 | ER Document Report ---
ED GI/ - General Chief Complaint: Abdominal Pain Stated Complaint: ABDOMINAL PAIN,VOMITING,NAUSEA Time Seen by Provider: 06/09/18 14:45 Notes: The patient is a 58-year-old male, past medical history GERD, prior bowel obstructions, presents with 1 day of epigastric pain, nausea, vomiting and a small amount of watery diarrhea. He went to his primary care physician, Dr. Gross, today and was sent to the ER for further evaluation. He is also having a headache that he often has when he is dehydrated. He denies hematemesis, abdominal distention, urinary symptoms, fevers, neck stiffness, blurry vision, focal weakness, numbness, tingling or back pain. TRAVEL OUTSIDE OF THE [place] IN LAST 30 DAYS: No - Related Data Allergies/Adverse Reactions: chlorpromazine [From Thorazine] Adverse Reaction (Mild, Verified 06/09/18 13:19) Past Medical History - General Information source: Patient - Social History Smoking Status: Never Smoker Chew tobacco use (# tins/day): No Frequency of alcohol use: None Drug Abuse: None Family History: Reviewed & Not Pertinent Patient has suicidal ideation: No Patient has homicidal ideation: No - Past Medical History Cardiac Medical History: Reports: Hx Hypercholesterolemia Denies: Hx Coronary Artery Disease, Hx Heart Attack, Hx Hypertension Pulmonary Medical History: Denies: Hx Asthma, Hx Bronchitis, Hx COPD, Hx Pneumonia Neurological Medical History: Denies: Hx Cerebrovascular Accident, Hx Seizures Renal/ Medical History: Denies: Hx Peritoneal Dialysis GI Medical History: Reports: Hx Gastroesophageal Reflux Disease Musculoskeltal Medical History: Denies Hx Arthritis Past Surgical History: Reports: Hx Cholecystectomy, Hx Inguinal Hernia - Immunizations Hx Diphtheria, Pertussis, Tetanus Vaccination: No Review of Systems - Review of Systems Notes: REVIEW OF SYSTEMS: CONSTITUTIONAL: -fevers, -chills EENT: -eye pain, -difficulty swallowing, -nasal congestion CARDIOVASCULAR: -chest pain, -syncope. RESPIRATORY: -cough, -SOB GASTROINTESTINAL: +abdominal pain, +nausea, +vomiting, +diarrhea GENITOURINARY: -dysuria, -hematuria MUSCULOSKELETAL: -back pain, -neck pain SKIN: -rash or skin lesions. HEMATOLOGIC: -easy bruising or bleeding. LYMPHATIC: -swollen, enlarged glands. NEUROLOGICAL: -altered mental status or loss of consciousness, -headache, - neurologic symptoms PSYCHIATRIC: -anxiety, -depression. ALL OTHER SYSTEMS REVIEWED AND NEGATIVE. Physical Exam - Vital signs Vitals: Temp Pulse Resp BP Pulse Ox 99.2 F 100 16 144/78 H 95 06/09/18 13:27 06/09/18 13:27 06/09/18 13:27 06/09/18 13:27 06/09/18 13:27 - Notes Notes: PHYSICAL EXAMINATION: GENERAL: Uncomfortable. HEAD: Atraumatic, normocephalic. EYES: Pupils equal round and reactive to light, extraocular movements intact, sclera anicteric, conjunctiva are normal. ENT: nares patent, oropharynx clear without exudates. Moist mucous membranes. NECK: Normal range of motion, supple without lymphadenopathy LUNGS: Breath sounds clear to auscultation bilaterally and equal. No wheezes rales or rhonchi. HEART: Tachycardia, regular rhythm ABDOMEN: Soft, epigastric down to umbilicus tenderness, diminished bowel sounds. No guarding, no rebound. No masses appreciated. EXTREMITIES: Normal range of motion, no pitting or edema. No cyanosis. NEUROLOGICAL: Cranial nerves grossly intact. Normal speech, normal gait. Normal sensory and motor exams. PSYCH: Normal mood, normal affect. SKIN: Warm, Dry, normal turgor, no rashes or lesions noted. Course - Re-evaluation Re-evalutation: Patient with history of bowel obstruction, presents with worse abdominal pain, nausea and vomiting, similar to his prior bowel obstructions. CT scan reveals bowel obstruction. His prior obstructions resolved with conservative treatment and he did not require surgery. 06/09/18 17:[address] Itzel Gross, his PMD, and he has accepted the patient to his service for further monitoring and evaluation of his SBO. Will keep the patient NPO and place NGT. Will place a consult for Dr. Heck, who is currently in surgery. - Vital Signs Vital signs: Temp Pulse Resp BP Pulse Ox 99.2 F 100 16 144/78 H 95 06/09/18 13:27 06/09/18 13:27 06/09/18 13:27 06/09/18 13:27 06/09/18 13:27 - Laboratory Result Diagrams: 06/09/18 14:38 06/09/18 14:38 Laboratory results interpreted by me: 0706/09/18 06/09/18 14:28 14:38 14:38 WBC 10.8 H RBC 5.82 H Absolute Neutrophils 8.3 H Total Bilirubin 1.6 H Direct Bilirubin 0.5 H Urine Protein 30 H Urine Urobilinogen 2.0 H - Diagnostic Test Radiology reviewed: Image reviewed, Reports reviewed Radiology results interpreted by me: CT A/P: Findings most likely small bowel obstruction. Transition zone mid abdomen. No identified focus of obstruction. Discharge - Discharge Clinical Impression: Small bowel obstruction Condition: Stable Disposition: ADMITTED INPATIENT Admitting Provider: Anatoliy Unit Admitted: Medical Floor Referrals: ITZEL GROSS MD [Primary Care Provider] - Follow up as needed
[2018-06-09 15:22] LABS: ALANINE AMINOTRANSFERASE 62 U/L (21-72); ALBUMIN 4.8 g/dL (3.5-5.0); ALKALINE PHOSPHATASE 73 U/L (38-126); ANION GAP 13 (5-19); ASPARTATE AMINO TRANSFERASE 33 U/L (17-59); BILIRUBIN,DIRECT 0.5 mg/dL (0.0-0.4); BILIRUBIN,TOTAL 1.6 mg/dL (0.2-1.3); BLOOD UREA NITROGEN 14 mg/dL (7-20); CALCIUM 9.5 mg/dL (8.4-10.2); CARBON DIOXIDE 29 mmol/L (22-30); CHLORIDE 102 mmol/L (98-107); GLUCOSE 101 mg/dL (75-110); LIPASE 71.1 U/L (23-300); POTASSIUM 4.1 mmol/L (3.6-5.0); SODIUM 144.4 mmol/L (137-145)
--- NOTE | 2018-06-09 17:40 | RADIOLOGY REPORT (SQ) ---
EXAM DESCRIPTION: CT ABD/PELVIS WITH IV ORAL COMPLETED DATE/TIME: 06/09/2018 5:28 pm REASON FOR STUDY: nausea, vomiting, abdominal distention, SBO? COMPARISON: 2014 TECHNIQUE: CT scan of the abdomen and pelvis performed with intravenous and oral contrast using sang elmer scanning technique with dynamic intravenous contrast injection. Images reviewed with lung, soft t issue, and bone windows. Reconstructed coronal and sagittal MPR images reviewed. Delayed images for e valuation of the urinary system also acquired. All images stored on PACS. All CT scanners at this facility use dose modulation, iterative reconstruction, and/or weight based d osing when appropriate to reduce radiation dose to as low as reasonably achievable (ALARA). [facility]: Dose Right [facility]: CareDose [facility]: Dose Right [facility]: Teradose 4D [facility]: Bloggerce CONTRAST TYPE AND DOSE: contrast/concentration: Isovue 370.00 mg/ml; Total Contrast Delivered: 100.0 ml; Total Saline Delivered: 50.0 ml RENAL FUNCTION: GFR > 60. RADIATION DOSE: . LIMITATIONS: None. FINDINGS: LOWER CHEST: No significant findings. No nodules or infiltrates. LIVER: Diffuse fatty infiltration. No masses. SPLEEN: Normal size. No focal lesions. PANCREAS: No masses. No significant calcifications. No adjacent inflammation or peripancreatic fluid collections. Pancreatic duct not dilated. GALLBLADDER: Surgically absent. ADRENAL GLANDS: No significant masses or asymmetry. RIGHT KIDNEY AND URETER: No solid masses. No significant calcifications. No hydronephrosis or hyd roureter. LEFT KIDNEY AND URETER: No solid masses. No significant calcifications. No hydronephrosis or hydr oureter. AORTA AND VESSELS: No aneurysm. No dissection. Renal arteries, SMA, celiac without stenosis. RETROPERITONEUM: No retroperitoneal adenopathy, hemorrhage or masses. BOWEL AND PERITONEAL CAVITY: Dilatation of the stomach and proximal small bowel loops. Transition zo ne in the mid abdomen. No identified obstructive focus. Diverticulosis without diverticulitis. APPENDIX: Not visualized. PELVIS: No significant masses. Normal bladder. No free fluid. ABDOMINAL WALL: No masses. No hernias. BONES: No significant or acute findings. OTHER: No other significant finding. IMPRESSION: Findings most likely small bowel obstruction. Transition zone mid abdomen. No identifi ed focus of obstruction. TECHNICAL DOCUMENTATION: JOB ID: [id number] Quality ID # [id number]: Final reports with documentation of one or more dose reduction techniques (e.g., Au tomated exposure control, adjustment of the mA and/or kV according to patient size, use of iterative reconstruction technique) 2010 [employer]- All Rights Reserved Reading location - IP/workstation name: [email or web address]
[2018-06-09] MEDS ORDERED: FENTANYL CITRATE INJ/PF 100 MCG/2 ML AMPUL IV ONE (17:49)
[2018-06-09] MEDS ORDERED: MIDAZOLAM 2 MG/2 ML INJ IV ONE ×2 (17:49→18:41)
[2018-06-09] MEDS ORDERED: ACETAMINOPHEN 325 MG TABLET PO PRN (17:51)
[2018-06-09] MEDS ORDERED: PROMETHAZINE HCL 25 MG SUPP.RECT PR PRN (17:51)
[2018-06-09] MEDS ORDERED: ONDANSETRON HCL INJ/PF 4 MG/2 ML SDV IV PRN (17:51)
--- NOTE | 2018-06-09 20:11 | HISTORY AND PHYSICAL E ---
History and Physical NAME: IBETH ORTIZ : 1960 AGE: 58Y ADMITTED: 06/09/2018 ROOM: ED10 HISTORY OF THE PRESENT ILLNESS: This is a 58-year-old male with a significant history of small bowel obstructions of unclear etiology, history of peptic ulcer disease, history of hypertension, history of sleep apnea, and a history of hiccups physically, recently admitted in November 2017 for abdominal pain, small bowel obstructions pretty much *------*. The patient follows with Dr. Zimmer, who had an endoscopy done, it was all stable. He came to my office with the last couple of days the patient started complaining of some abdominal pain, some nausea, and the patient had a persistent vomiting and loose stools. The patient is unable to keep anything down since the last 1 or 2 days. The patient otherwise in the office, however, vital signs is pretty stable but the patient's bowel sound is very sluggish and at this point decided to send the patient to the emergency department for further evaluation given the significant history of obstruction in the past. In the emergency department initial blood work was all stable, except white count is slightly elevated but the patient's CT scan of abdomen and pelvis with IV and oral contrast suggests the patient has a small bowel obstruction in the mid abdomen with a not very focused sign of any obstruction but at this point decided to admit for the small bowel obstruction and keep him n.p.o. and further evaluations. Discussed with the patient and the , agreed with that. PAST MEDICAL HISTORY: 1. History of small bowel obstructions in the past. 2. History of peptic ulcer disease. 3. History of hyperlipidemia. 4. History of obstructive sleep apnea. PAST SURGICAL HISTORY: 1. History of cholecystectomy. 2. Abdominal hernia repair. 3. History of heel spur. 4. History of colonoscopy and endoscopies. ALLERGIES: CHLORPROMAZINE. CURRENT MEDICATIONS: The patient is taking omeprazole and allergy medications. REVIEW OF SYSTEMS: As above, all other pertinents negative. PHYSICAL EXAMINATION: VITAL SIGNS: Blood pressure is 144/78, temperature is 99.2, pulse was 100, respirations was 16, O2 saturation 100% on room air. GENERAL: The patient is alert, awake, oriented x3. There was no acute distress since. HEAD AND NECK: Normocephalic. PERRLA. LUNGS: No wheezing, no rales, no rhonchi. HEART: S1, S2, is present. ABDOMEN: Soft. Bowel sounds very hypoactive, mild tenderness but no guarding, no rigidity. EXTREMITIES: No edema. NEUROLOGIC: The patient moves all 4 extremities. Alert, awake, oriented x4. The patient's gait is normal. DIAGNOSTIC STUDIES: Laboratory; WBC is 10.8, hemoglobin is 17.0, platelet is 288. The patient's neutrophils is 8.3. Chemistries; sodium is 144, potassium is 4.1, BUN is 14, creatinine 0.91. The patient's total bilirubin is 1.6, direct bilirubin is 0.5, AST and ALT within normal limits. Lipase is only 71. The patient had a CT scan of the abdomen and pelvis that was done with IV and oral contrast. Liver diffuse fatty infiltrate, no masses. Pancreas, no mass or calcifications. The patient's bowel dilatation of the stomach and the proximal small bowel loops *------* in the mid abdomen. No identified obstruction, diverticulosis without diverticulitis. ASSESSMENT: 1. Small bowel obstruction. 2. Hyperlipidemia. 3. Hiccup. 4. Obstructive sleep apnea. PLAN: 1. Admit the patient in tele bed. 2. Start the patient on IV fluid, n.p.o. 3. Start patient on empiric antibiotics. 4. Get the blood culture, urine cultures. 5. Consult with general surgery, Dr. Heck for further evaluation. The patient is otherwise currently hemodynamically stable. TIME SPENT: More than 30 minutes spent examining the patient, reviewing the record, discussed with the patient's regarding the patient's clinical condition. I hope the patient continues to be improved. See the MD orders. DICTATING PHYSICIAN: JAMESON GROSS M.D. [id number] PHY#: [id number] ID: [id number] JOB#: [id number] ACCT: [id number] cc:JAMESON GROSS M.D. >
--- NOTE | 2018-06-09 20:20 | EKG REPORT ---
SEVERITY:- NORMAL ECG - SINUS RHYTHM : Confirmed by: Denise Clarke MD 09-Jun-2018 20:19:56
[2018-06-09] MEDS: NORMAL SALINE 1000 ML 1,000 ML IV PRN (20:23)
--- NOTE | 2018-06-09 20:37 | PDOC CONSULTATION ---
Consultation Consult Date: 06/09/18 Attending physician:: EASTON GROSS Consult reason:: Partial small bowel obstruction History of Present Illness Admission Date/PCP: 06/09/18 18:26 JAMESON GROSS MD History of Present Illness: IBETH ORTIZ is a 58 year old male Presents to the emergency department complaining of abdominal pain multiple episodes of nausea and vomiting 3 days. Patient was evaluated by Dr. Gross earlier today and admitted directly to the hospital for management of same. Patient has 2 previous episodes of documented partial small bowel obstructions and the other 2016. Both times the patient was found to have evidence of dilated small bowel with thickened small bowel wall, karlee-luminal stranding; workup was otherwise unremarkable. Patient improved clinically with nonoperative management. He is 3 years status post upper and lower endoscopy without any pathologic findings. Reports churning of the stomach but no nausea vomiting. He is chronically bloated. He does not have a formal diagnosis of a gastrointestinal problem. In the emergency department he was evaluated found to have a mild leukocytosis and a CT scan was performed with IV and oral contrast. This again showed findings consistent with a dilated stomach and multiple small bowel loops with thickened small bowel wall in the proximal GI tract. There was some contrast moving through the more distal small bowel. After several hours the patient reports he had multiple liquid bowel movements; he was having no more nausea or vomiting and wanted clear liquids. Multiple attempts at nasogastric tube insertion were unsuccessful. Past Medical History Cardiac Medical History: Reports: Hyperlipidema Denies: Coronary Artery Disease, Myocardial Infarction, Hypertension Pulmonary Medical History: Denies: Asthma, Bronchitis, Chronic Obstructive Pulmonary Disease (COPD), Pneumonia Neurological Medical History: Denies: Seizures GI Medical History: Reports: Gastroesophageal Reflux Disease Musculoskeltal Medical History: Denies: Arthritis Hematology: Denies: Anemia Past Surgical History Past Surgical History: Cholecystectomy, foot surgery, bilateral inguinal herniorrhaphies Past Surgical History: Reports: Cholecystectomy Social History Smoking Status: Never Smoker Frequency of Alcohol Use: None Hx Recreational Drug Use: No Drugs: None Hx Prescription Drug Abuse: No Family History Family History: Reviewed & Not Pertinent Parental Family History Reviewed: Yes Children Family History Reviewed: Yes Sibling(s) Family History Reviewed.: Yes Medication/Allergy Allergies/Adverse Reactions: chlorpromazine [From Thorazine] Adverse Reaction (Mild, Verified 06/09/18 13:19) Review of Systems Constitutional: PRESENT: other - Patient denies constitutional symptoms Eyes: ABSENT: visual disturbances Ears: ABSENT: hearing changes Genitourinary: ABSENT: dysuria, hematuria Musculoskeletal: ABSENT: joint swelling Integumentary: ABSENT: rash, wounds Neurological: ABSENT: abnormal gait, abnormal speech, confusion, dizziness, focal weakness, syncope Psychiatric: ABSENT: anxiety, depression, homidical ideation, suicidal ideation Endocrine: ABSENT: cold intolerance, heat intolerance, polydipsia, polyuria Hematologic/Lymphatic: ABSENT: easy bleeding, easy bruising Physical Exam Vital Signs: Temp Pulse Resp BP Pulse Ox 99.2 F 100 20 142/98 H 95 06/09/18 13:27 06/09/18 13:27 06/09/18 19:18 06/09/18 19:18 06/09/18 19:18 General appearance: PRESENT: no acute distress Head exam: PRESENT: normocephalic Eye exam: PRESENT: EOMI Mouth exam: PRESENT: dry mucosa Neck exam: PRESENT: full ROM Respiratory exam: PRESENT: clear to auscultation chidi Cardiovascular exam: PRESENT: RRR Pulses: PRESENT: normal carotid pulses, normal radial pulses, normal femoral pulses GI/Abdominal exam: PRESENT: other - Distended but not tympanitic no peritoneal signs no rigidity no organomegaly, no umbilical or inguinal hernias. The abdominal wall skin is hairy: There is no focal tenderness Results Impressions: Abdomen/Pelvis CT 06/09/18 00:00 IMPRESSION: Findings most likely small bowel obstruction. Transition zone mid abdomen. No identified focus of obstruction. Assessment & Plan - Diagnosis (1) Partial small bowel obstruction Is this a current diagnosis for this admission?: Yes Plan: Based on clinical presentation, similarity to previous episodes, and almost identical CT scan pattern of dilated proximal small bowel with thickened small bowel wall. Clinically the patient is improved, and having evacuation of his oral contrast. There is no role for nasogastric tube insertion tonight. Recommendations: 1. The patient's wanted to know what the etiology of the small bowel obstruction is; I told her I did not know at this time. 2. The patient does not require exploratory surgery: Furthermore does not require nasogastric tube given his clinical improvement 3. We may start him on ice chips and advance to clear liquids if he continues to do well. - Time Time Spent: 50 to 70 Minutes Smoking Cessation Education: over 10 minutes Medications reviewed and adjusted accordingly: Yes Anticipated discharge: Home - Inpatient Certification Based on my medical assessment, after consideration of the patient's comorbidities, presenting symptoms, or acuity I expect that the services needed warrant INPATIENT care.: Yes I certify that my determination is in accordance with my understanding of Medicare's requirements for reasonable and necessary INPATIENT services [42 CFR 412.3e].: Yes Medical Necessity: Need For IV Fluids
[2018-06-09] MEDS: PANTOPRAZOLE SODIUM 40 MG VIAL IV SCH (22:21)
[2018-06-10 04:59] LABS: ABSOLUTE LYMPHOCYTES (AUTO) 1.5 10^3/uL (0.5-4.7); ABSOLUTE MONOCYTES (AUTO) 0.8 10^3/uL (0.1-1.4); ABSOLUTE NEUT (AUTO) 7.7 10^3/uL (1.7-8.2); BASOPHILS % (AUTO) 0.3 % (0-2); EOSINOPHILS % (AUTO) 0.4 % (0-6); HEMATOCRIT 43.5 % (37.9-51.0); HEMOGLOBIN 15.2 g/dL (13.5-17.0); LYMPHOCYTES % (AUTO) 14.4 % (13-45); MEAN CORPUSCULAR HEMOGLOBIN 29.6 pg (27.0-33.4); MEAN CORPUSCULAR HGB CONC 34.8 g/dL (32.0-36.0); MEAN CORPUSCULAR VOLUME 85 fl (80-97); MONOCYTES % (AUTO) 8.2 % (3-13); PLATELET COUNT 212 10^3/uL (150-450); RED BLOOD COUNT 5.13 10^6/uL (4.35-5.55); RED CELL DISTRIBUTION WIDTH 13.5 % (11.5-14.0); SEGMENTED NEUTROPHILS % (AUTO) 76.7 % (42-78); TOTAL CELLS COUNTED % (AUTO) 100 %; WHITE BLOOD COUNT 10.1 10^3/uL (4.0-10.5)
[2018-06-10 05:15] LABS: ALANINE AMINOTRANSFERASE 55 U/L (21-72); ALBUMIN 3.9 g/dL (3.5-5.0); ALKALINE PHOSPHATASE 55 U/L (38-126); ANION GAP 11 (5-19); ASPARTATE AMINO TRANSFERASE 34 U/L (17-59); BILIRUBIN,DIRECT 0.3 mg/dL (0.0-0.4); BILIRUBIN,TOTAL 1.4 mg/dL (0.2-1.3); BLOOD UREA NITROGEN 15 mg/dL (7-20); CALCIUM 8.9 mg/dL (8.4-10.2); CARBON DIOXIDE 25 mmol/L (22-30); CHLORIDE 108 mmol/L (98-107); GLUCOSE 95 mg/dL (75-110); SODIUM 144.2 mmol/L (137-145); TOTAL PROTEIN 6.8 g/dL (6.3-8.2)
[2018-06-10] MEDS ORDERED: ONDANSETRON 4 MG TAB.RAPDIS ONE (06:09)
[2018-06-10] MEDS ORDERED: ONDANSETRON 4 MG TAB.RAPDIS PO PRN (06:13)
--- NOTE | 2018-06-10 08:31 | RADIOLOGY REPORT (SQ) ---
EXAM DESCRIPTION: ABDOMEN 2 VIEWS COMPLETED DATE/TIME: 06/10/2018 8:12 am REASON FOR STUDY: Interval change in bowel gas pattern COMPARISON: CT abdomen pelvis 06/09/2018, 11/24/2017 Small bowel series [id number] Abdominal films 11/25/2017, 11/24/2017 NUMBER OF VIEWS: Two views. TECHNIQUE: Supine and upright radiographic images of the abdomen acquired. LIMITATIONS: None. FINDINGS: FREE AIR: None. No abnormal gas collections. LUNG BASES: Bibasilar atelectasis BOWEL GAS PATTERN: Oral contrast given for CT 06/09/2018 is seen in the colon. There are air-fluid lev els in distended small bowel loops in the mid abdomen. This likely represents an ileus. Partial sma ll bowel obstruction could not be excluded. CALCIFICATIONS: No suspicious calcifications. SOFT TISSUES: No gross mass or suggestion of organomegaly. HARDWARE: Clips right upper quadrant post cholecystectomy. BONES: No acute fracture. No worrisome bone lesions. OTHER: No other significant finding. IMPRESSION: Oral contrast from CT is present in the colon in a nonobstructive pattern. There are di lated air-fluid levels in the mid abdomen. Findings could either represent an ileus or partial small bowel obstruction. TECHNICAL DOCUMENTATION: JOB ID: [id number] [employer]- All Rights Reserved Reading location - IP/workstation name: [email or web address]
[2018-06-10] MEDS ORDERED: BACLOFEN 10 MG TABLET PO PRN (08:36)
[2018-06-10] MEDS ORDERED: CEFTRIAXONE 1 GM/D5W RTU 1 GM/50 ML RTUPB IV SCH (10:00)
[2018-06-10] MEDS: CEFTRIAXONE SODIUM 1,000 MG in DEXTROSE 5%-WATER 50 ML IV SCH (11:14)
[2018-06-10] MEDS: ENOXAPARIN SODIUM INJ 40 MG/0.4 ML DISP.SYRIN SUBCUT SCH (11:14)
[2018-06-10] MEDS: PANTOPRAZOLE SODIUM 40 MG VIAL IV SCH ×2 (11:15→21:44)
[2018-06-10] MEDS: BACLOFEN 10 MG TABLET PO PRN ×2 (11:15→20:30)
--- NOTE | 2018-06-10 12:51 | PDOC PROGRESS REPORT ---
Subjective Progress Note for:: 06/10/18 Subjective:: Patient is currently doing fair Patient still have a hicuup Patient other than that no abdominal pain still having nausea and vomiting Patient have a loose stool this morning Patient seen by general surgery and suggest no need for NG tube and no need for any surgical interventions Patient's denied any chest pain denied any shortness of the breath Patient's otherwise remained stable Reason For Visit: ABD PAIN SBO Physical Exam Vital Signs: Temp Pulse Resp BP Pulse Ox 98.6 F 90 19 142/77 H 93 06/10/18 11:17 06/10/18 11:17 06/10/18 11:17 06/10/18 11:17 06/10/18 11:17 Intake & Output 06/09/18 06/10/18 06/11/18 06:59 06:59 06:59 Intake Total 1200 Output Total 2 Balance 1198 Weight 111.6 kg General appearance: PRESENT: no acute distress, well-developed, well-nourished Head exam: PRESENT: atraumatic, normocephalic Eye exam: PRESENT: conjunctiva pink, EOMI, PERRLA. ABSENT: scleral icterus Ear exam: PRESENT: normal external ear exam Mouth exam: PRESENT: moist, tongue midline Neck exam: PRESENT: full ROM. ABSENT: carotid bruit, JVD, lymphadenopathy, thyromegaly Respiratory exam: PRESENT: clear to auscultation chidi Cardiovascular exam: PRESENT: RRR. ABSENT: diastolic murmur, rubs, systolic murmur Pulses: PRESENT: normal dorsalis pedis pul, +2 pedal pulses bilateral Vascular exam: PRESENT: normal capillary refill GI/Abdominal exam: PRESENT: normal bowel sounds, soft. ABSENT: distended, guarding, mass, organolmegaly, rebound, tenderness Rectal exam: PRESENT: deferred Extremities exam: ABSENT: pedal edema Neurological exam: PRESENT: alert, awake, oriented to person, oriented to place , oriented to time, oriented to situation, CN II-XII grossly intact. ABSENT: motor sensory deficit Psychiatric exam: PRESENT: appropriate affect, normal mood. ABSENT: homicidal ideation, suicidal ideation Skin exam: PRESENT: dry, intact, warm. ABSENT: cyanosis, rash Results Laboratory Results: 06/10/18 04:23 06/10/18 04:23 06/10/18 06/10/18 04:23 04:23 WBC 10.1 RBC 5.13 Hgb 15.2 Hct 43.5 MCV 85 MCH 29.6 MCHC 34.8 RDW 13.5 Plt Count 212 Seg Neutrophils % 76.7 Lymphocytes % 14.4 Monocytes % 8.2 Eosinophils % 0.4 Basophils % 0.3 Absolute Neutrophils 7.7 Absolute Lymphocytes 1.5 Absolute Monocytes 0.8 Absolute Eosinophils 0.0 Absolute Basophils 0.0 Sodium 144.2 Potassium 4.0 Chloride 108 H Carbon Dioxide 25 Anion Gap 11 BUN 15 Creatinine 0.84 Est GFR ( Amer) > 60 Est GFR (Non-Af Amer) > 60 Glucose 95 Calcium 8.9 Total Bilirubin 1.4 H AST 34 ALT 55 Alkaline Phosphatase 55 Total Protein 6.8 Albumin 3.9 Impressions: Abdomen/Pelvis CT 06/09/18 00:00 IMPRESSION: Findings most likely small bowel obstruction. Transition zone mid abdomen. No identified focus of obstruction. Abdomen X-Ray 06/10/18 06:47 IMPRESSION: Oral contrast from CT is present in the colon in a nonobstructive pattern. There are dilated air-fluid levels in the mid abdomen. Findings could either represent an ileus or partial small bowel obstruction. Assessment & Plan - Diagnosis (1) Partial small bowel obstruction Is this a current diagnosis for this admission?: Yes Plan: Continues to follow with the surgery (2) GERD (gastroesophageal reflux disease) Qualifiers: Esophagitis presence: esophagitis presence not specified Qualified Code(s) : K21.9 - Gastro-esophageal reflux disease without esophagitis Is this a current diagnosis for this admission?: Yes Plan: Continues to Protonix (3) Hiccup Is this a current diagnosis for this admission?: Yes Plan: Unclear etiology but most likely patient have this partial obstruction and ileus I think more pushing the diaphragm and patient how this hiccup patient have a so many medicines trying the last time in November of endoscopy was done was all stable we will try some baclofenAs per discussed with the Dr. 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
[2018-06-10] MEDS: NORMAL SALINE 1000 ML 1,000 ML IV PRN (17:49)
--- NOTE | 2018-06-10 20:44 | PDOC PROGRESS REPORT ---
Subjective Progress Note for:: 06/10/18 Subjective:: This is a 58-year-old male with abdominal pain and enteritis seen on CT scan. The patient continues to have bowel movements and is hungry. He is asking for liquids today. His abdominal pain appears to be improving. The patient denies chest pain, shortness of breath, fevers, chills, nausea, vomiting, dizziness, orthostasis, fatigue, malaise, blurry vision. Reason For Visit: ABD PAIN SBO Physical Exam Vital Signs: Temp Pulse Resp BP Pulse Ox 98.5 F 91 19 143/85 H 95 06/10/18 15:27 06/10/18 15:27 06/10/18 15:27 06/10/18 15:27 06/10/18 15:27 Intake & Output 06/09/18 06/10/18 06/11/18 06:59 06:59 06:59 Intake Total 1200 1100 Output Total 2 Balance 1198 1100 Weight 111.6 kg General appearance: PRESENT: no acute distress Head exam: PRESENT: atraumatic, normocephalic Eye exam: PRESENT: EOMI, PERRLA. ABSENT: scleral icterus Mouth exam: PRESENT: neck supple Teeth exam: ABSENT: poor dentation Neck exam: ABSENT: meningismus, tenderness, thyromegaly, tracheal deviation Respiratory exam: PRESENT: clear to auscultation chidi, unlabored. ABSENT: chest wall tenderness, wheezes Cardiovascular exam: PRESENT: RRR Pulses: PRESENT: normal radial pulses Vascular exam: PRESENT: normal capillary refill. ABSENT: pallor GI/Abdominal exam: PRESENT: soft, tenderness - Mild. ABSENT: distended, rebound , rigid Rectal exam: PRESENT: deferred Extremities exam: ABSENT: clubbing Musculoskeletal exam: ABSENT: deformity Neurological exam: PRESENT: alert, awake, oriented to person, oriented to place , oriented to time, oriented to situation, CN II-XII grossly intact. ABSENT: motor sensory deficit Psychiatric exam: ABSENT: agitated, anxious, depressed Skin exam: ABSENT: cyanosis, erythema, jaundice Results Laboratory Results: 06/10/18 04:23 06/10/18 04:23 06/10/18 06/10/18 04:23 04:23 WBC 10.1 RBC 5.13 Hgb 15.2 Hct 43.5 MCV 85 MCH 29.6 MCHC 34.8 RDW 13.5 Plt Count 212 Seg Neutrophils % 76.7 Lymphocytes % 14.4 Monocytes % 8.2 Eosinophils % 0.4 Basophils % 0.3 Absolute Neutrophils 7.7 Absolute Lymphocytes 1.5 Absolute Monocytes 0.8 Absolute Eosinophils 0.0 Absolute Basophils 0.0 Sodium 144.2 Potassium 4.0 Chloride 108 H Carbon Dioxide 25 Anion Gap 11 BUN 15 Creatinine 0.84 Est GFR ( Amer) > 60 Est GFR (Non-Af Amer) > 60 Glucose 95 Calcium 8.9 Total Bilirubin 1.4 H AST 34 ALT 55 Alkaline Phosphatase 55 Total Protein 6.8 Albumin 3.9 Impressions: Abdomen/Pelvis CT 06/09/18 00:00 IMPRESSION: Findings most likely small bowel obstruction. Transition zone mid abdomen. No identified focus of obstruction. Abdomen X-Ray 06/10/18 06:47 IMPRESSION: Oral contrast from CT is present in the colon in a nonobstructive pattern. There are dilated air-fluid levels in the mid abdomen. Findings could either represent an ileus or partial small bowel obstruction. Assessment & Plan - Diagnosis (1) Enteritis Is this a current diagnosis for this admission?: Yes - Plan Summary Plan Summary: This is a 58-year-old male with enteritis seen on CT scan. Patient has focal thickening of a segment of small intestine. He has no convincing evidence of obstruction on his CT scan or follow-up x-rays. The patient's bowels are moving. He has no distention. The patient still has abdominal pain. I will start the patient on clears. Continue Rocephin, but add Flagyl.
[2018-06-10] MEDS: METRONIDAZOLE 500 MG TABLET PO SCH (21:44)
[2018-06-11] MEDS: BACLOFEN 10 MG TABLET PO PRN ×2 (05:20→21:01)
[2018-06-11] MEDS: METRONIDAZOLE 500 MG TABLET PO SCH ×3 (05:20→21:01)
[2018-06-11 07:17] LABS: ABSOLUTE EOSINOPHILS # (AUTO) 0.1 10^3/uL (0.0-0.6); ABSOLUTE LYMPHOCYTES (AUTO) 1.7 10^3/uL (0.5-4.7); ABSOLUTE MONOCYTES (AUTO) 0.6 10^3/uL (0.1-1.4); ABSOLUTE NEUT (AUTO) 4.7 10^3/uL (1.7-8.2); BASOPHILS % (AUTO) 0.7 % (0-2); HEMATOCRIT 39.4 % (37.9-51.0); HEMOGLOBIN 13.8 g/dL (13.5-17.0); LYMPHOCYTES % (AUTO) 24.4 % (13-45); MEAN CORPUSCULAR HEMOGLOBIN 29.3 pg (27.0-33.4); MEAN CORPUSCULAR HGB CONC 35.1 g/dL (32.0-36.0); MEAN CORPUSCULAR VOLUME 83 fl (80-97); MONOCYTES % (AUTO) 8.6 % (3-13); PLATELET COUNT 231 10^3/uL (150-450); RED BLOOD COUNT 4.73 10^6/uL (4.35-5.55); RED CELL DISTRIBUTION WIDTH 13.6 % (11.5-14.0); SEGMENTED NEUTROPHILS % (AUTO) 65.3 % (42-78); TOTAL CELLS COUNTED % (AUTO) 100 %; WHITE BLOOD COUNT 7.1 10^3/uL (4.0-10.5)
[2018-06-11 07:40] LABS: ANION GAP 12 (5-19); BLOOD UREA NITROGEN 13 mg/dL (7-20); CALCIUM 8.7 mg/dL (8.4-10.2); CARBON DIOXIDE 26 mmol/L (22-30); CHLORIDE 106 mmol/L (98-107); GLUCOSE 85 mg/dL (75-110); POTASSIUM 3.7 mmol/L (3.6-5.0); SODIUM 143.8 mmol/L (137-145)
--- NOTE | 2018-06-11 09:55 | Progress Note ---
Provider Note Provider Note: Case discussed with Dr Cope no formal note required Previous GI work up has been done
[2018-06-11] MEDS: PANTOPRAZOLE SODIUM 40 MG VIAL IV SCH ×2 (10:38→21:01)
[2018-06-11] MEDS: ENOXAPARIN SODIUM INJ 40 MG/0.4 ML DISP.SYRIN SUBCUT SCH (10:39)
[2018-06-11] MEDS: CEFTRIAXONE SODIUM 1,000 MG in DEXTROSE 5%-WATER 50 ML IV SCH (10:40)
--- NOTE | 2018-06-11 11:09 | PDOC PROGRESS REPORT ---
Subjective Progress Note for:: 06/11/18 Subjective:: Patient is currently feeling better Patient's started on the baclofen which helped for the hiccups Patient's denied any abdominal pain No nausea no vomiting And was started on the Flagyl for possible enteritis for the surgery Reason For Visit: ABD PAIN SBO Physical Exam Vital Signs: Temp Pulse Resp BP Pulse Ox 98.6 F 79 16 137/84 H 96 06/11/18 08:02 06/11/18 08:02 06/11/18 08:02 06/11/18 08:02 06/11/18 08:02 Intake & Output 06/10/18 06/11/18 06/12/18 06:59 06:59 06:59 Intake Total 1200 2300 Output Total 2 2 Balance 1198 2298 Weight 111.6 kg 115.8 kg General appearance: PRESENT: no acute distress, well-developed, well-nourished Head exam: PRESENT: atraumatic, normocephalic Eye exam: PRESENT: conjunctiva pink, EOMI, PERRLA. ABSENT: scleral icterus Ear exam: PRESENT: normal external ear exam Mouth exam: PRESENT: moist, tongue midline Neck exam: PRESENT: full ROM. ABSENT: carotid bruit, JVD, lymphadenopathy, thyromegaly Respiratory exam: PRESENT: clear to auscultation chidi Cardiovascular exam: PRESENT: RRR. ABSENT: diastolic murmur, rubs, systolic murmur Pulses: PRESENT: normal dorsalis pedis pul, +2 pedal pulses bilateral Vascular exam: PRESENT: normal capillary refill GI/Abdominal exam: PRESENT: normal bowel sounds, soft. ABSENT: distended, guarding, mass, organolmegaly, rebound, tenderness Rectal exam: PRESENT: deferred Extremities exam: ABSENT: pedal edema Musculoskeletal exam: PRESENT: ambulatory Neurological exam: PRESENT: alert, awake, oriented to person, oriented to place , oriented to time, oriented to situation, CN II-XII grossly intact. ABSENT: motor sensory deficit Psychiatric exam: PRESENT: appropriate affect, normal mood. ABSENT: homicidal ideation, suicidal ideation Skin exam: PRESENT: dry, intact, warm. ABSENT: cyanosis, rash Results Laboratory Results: 06/11/18 06:00 06/11/18 06:00 06/11/18 06/11/18 06:00 06:00 WBC 7.1 RBC 4.73 Hgb 13.8 Hct 39.4 MCV 83 MCH 29.3 MCHC 35.1 RDW 13.6 Plt Count 231 Seg Neutrophils % 65.3 Lymphocytes % 24.4 Monocytes % 8.6 Eosinophils % 1.0 Basophils % 0.7 Absolute Neutrophils 4.7 Absolute Lymphocytes 1.7 Absolute Monocytes 0.6 Absolute Eosinophils 0.1 Absolute Basophils 0.0 Sodium 143.8 Potassium 3.7 Chloride 106 Carbon Dioxide 26 Anion Gap 12 BUN 13 Creatinine 0.85 Est GFR ( Amer) > 60 Est GFR (Non-Af Amer) > 60 Glucose 85 Calcium 8.7 Impressions: Abdomen/Pelvis CT 06/09/18 00:00 IMPRESSION: Findings most likely small bowel obstruction. Transition zone mid abdomen. No identified focus of obstruction. Abdomen X-Ray 06/10/18 06:47 IMPRESSION: Oral contrast from CT is present in the colon in a nonobstructive pattern. There are dilated air-fluid levels in the mid abdomen. Findings could either represent an ileus or partial small bowel obstruction. Assessment & Plan - Diagnosis (1) Partial small bowel obstruction Is this a current diagnosis for this admission?: Yes Plan: Most likely postsurgery is enteritis currently on Rocephin and Flagyl (2) GERD (gastroesophageal reflux disease) Qualifiers: Esophagitis presence: esophagitis presence not specified Qualified Code(s) : K21.9 - Gastro-esophageal reflux disease without esophagitis Is this a current diagnosis for this admission?: Yes Plan: Continues to Protonix (3) Hiccup Is this a current diagnosis for this admission?: Yes Plan: Currently stable with the baclofen (4) Hyperlipidemia Qualifiers: Hyperlipidemia type: unspecified Qualified Code(s): E78.5 - Hyperlipidemia , unspecified Is this a current diagnosis for this admission?: Yes (5) ANA on CPAP Is this a current diagnosis for this admission?: Yes Plan: Continues use the CPAP - Time Time Spent with patient: 15-24 minutes Medications reviewed and adjusted accordingly: Yes Anticipated discharge: Home Within: Other - Inpatient Certification Medical Necessity: Need Close Monitoring Due to Risk of Patient Decompensation, Need For IV Fluids 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
[2018-06-11] MEDS: NORMAL SALINE 1000 ML 1,000 ML IV PRN (13:18)
--- NOTE | 2018-06-12 02:15 | PDOC PROGRESS REPORT ---
Subjective Progress Note for:: 06/11/18 Subjective:: Has BM and flatus. Less abdominal pains Reason For Visit: ABD PAIN SBO Physical Exam Vital Signs: Temp Pulse Resp BP Pulse Ox 99.0 F 79 15 142/78 H 96 06/12/18 00:13 06/12/18 00:13 06/12/18 00:19 06/12/18 00:13 06/12/18 00:19 Intake & Output 06/10/18 06/11/18 06/12/18 06:59 06:59 06:59 Intake Total 1200 2300 2135 Output Total 2 2 Balance 1198 2298 2135 Weight 111.6 kg 115.8 kg Exam: abd is soft with minimal tenderness epigastric area. Results Laboratory Results: 06/11/18 06:00 06/11/18 06:00 06/11/18 06/11/18 06:00 06:00 WBC 7.1 RBC 4.73 Hgb 13.8 Hct 39.4 MCV 83 MCH 29.3 MCHC 35.1 RDW 13.6 Plt Count 231 Seg Neutrophils % 65.3 Lymphocytes % 24.4 Monocytes % 8.6 Eosinophils % 1.0 Basophils % 0.7 Absolute Neutrophils 4.7 Absolute Lymphocytes 1.7 Absolute Monocytes 0.6 Absolute Eosinophils 0.1 Absolute Basophils 0.0 Sodium 143.8 Potassium 3.7 Chloride 106 Carbon Dioxide 26 Anion Gap 12 BUN 13 Creatinine 0.85 Est GFR ( Amer) > 60 Est GFR (Non-Af Amer) > 60 Glucose 85 Calcium 8.7 Impressions: Abdomen/Pelvis CT 06/09/18 00:00 IMPRESSION: Findings most likely small bowel obstruction. Transition zone mid abdomen. No identified focus of obstruction. Abdomen X-Ray 06/10/18 06:47 IMPRESSION: Oral contrast from CT is present in the colon in a nonobstructive pattern. There are dilated air-fluid levels in the mid abdomen. Findings could either represent an ileus or partial small bowel obstruction. Assessment & Plan - Time Time Spent with patient: 15-24 minutes - Plan Summary Plan Summary: OK to start clears po then gradually increse as tolerated.
--- NOTE | 2018-06-12 02:28 | PDOC PROGRESS REPORT ---
Subjective Progress Note for:: 06/12/18 Subjective:: Hiccups and crampy epigastric pains Has diarrhea Reason For Visit: ABD PAIN SBO Physical Exam Vital Signs: Temp Pulse Resp BP Pulse Ox 99.0 F 79 15 142/78 H 96 06/12/18 00:13 06/12/18 00:13 06/12/18 00:19 06/12/18 00:13 06/12/18 00:19 Intake & Output 06/10/18 06/11/18 06/12/18 06:59 06:59 06:59 Intake Total 1200 2300 2135 Output Total 2 2 Balance 1198 2298 2135 Weight 111.6 kg 115.8 kg Exam: abdomen is soft with mild epigastric tenderness. Able to cough without abdominal pains Has hiccups. Claims he was given 2 po meds which resolved the hiccups. Look at the discharge summary in 12/19. Has po Omeprazole,gabapentin 300 mgs q 8 hrs, Simethicone. Told me he was seen by Dr Foster who told him he has a left inguinal hernia but he is completely asymptomatic. Has a left inguinal hernia more noticeable on straining. Results Laboratory Results: 06/11/18 06:00 06/11/18 06:00 06/11/18 06/11/18 06:00 06:00 WBC 7.1 RBC 4.73 Hgb 13.8 Hct 39.4 MCV 83 MCH 29.3 MCHC 35.1 RDW 13.6 Plt Count 231 Seg Neutrophils % 65.3 Lymphocytes % 24.4 Monocytes % 8.6 Eosinophils % 1.0 Basophils % 0.7 Absolute Neutrophils 4.7 Absolute Lymphocytes 1.7 Absolute Monocytes 0.6 Absolute Eosinophils 0.1 Absolute Basophils 0.0 Sodium 143.8 Potassium 3.7 Chloride 106 Carbon Dioxide 26 Anion Gap 12 BUN 13 Creatinine 0.85 Est GFR ( Amer) > 60 Est GFR (Non-Af Amer) > 60 Glucose 85 Calcium 8.7 Impressions: Abdomen/Pelvis CT 06/09/18 00:00 IMPRESSION: Findings most likely small bowel obstruction. Transition zone mid abdomen. No identified focus of obstruction. Abdomen X-Ray 06/10/18 06:47 IMPRESSION: Oral contrast from CT is present in the colon in a nonobstructive pattern. There are dilated air-fluid levels in the mid abdomen. Findings could either represent an ileus or partial small bowel obstruction. Assessment & Plan - Diagnosis (1) Left inguinal hernia Is this a current diagnosis for this admission?: Yes - Time Time Spent with patient: 15-24 minutes - Plan Summary Plan Summary: Added simethicone Repeat blood work Obstruction series this am. Will also add gabapentin.
[2018-06-12] MEDS: GABAPENTIN 400 MG CAPSULE PO SCH ×3 (06:34→22:30)
[2018-06-12] MEDS: BACLOFEN 10 MG TABLET PO PRN ×3 (06:35→22:30)
[2018-06-12] MEDS: METRONIDAZOLE 500 MG TABLET PO SCH ×3 (06:35→22:30)
[2018-06-12] MEDS: SIMETHICONE 80 MG TAB.CHEW PO PRN ×3 (06:35→22:30)
[2018-06-12 06:40] LABS: ABSOLUTE EOSINOPHILS # (AUTO) 0.1 10^3/uL (0.0-0.6); ABSOLUTE LYMPHOCYTES (AUTO) 1.9 10^3/uL (0.5-4.7); ABSOLUTE MONOCYTES (AUTO) 0.7 10^3/uL (0.1-1.4); BASOPHILS % (AUTO) 0.4 % (0-2); EOSINOPHILS % (AUTO) 1.7 % (0-6); HEMATOCRIT 39.8 % (37.9-51.0); HEMOGLOBIN 13.7 g/dL (13.5-17.0); LYMPHOCYTES % (AUTO) 24.1 % (13-45); MEAN CORPUSCULAR HEMOGLOBIN 29.1 pg (27.0-33.4); MEAN CORPUSCULAR HGB CONC 34.5 g/dL (32.0-36.0); MEAN CORPUSCULAR VOLUME 84 fl (80-97); MONOCYTES % (AUTO) 8.8 % (3-13); PLATELET COUNT 232 10^3/uL (150-450); RED BLOOD COUNT 4.71 10^6/uL (4.35-5.55); RED CELL DISTRIBUTION WIDTH 13.5 % (11.5-14.0); TOTAL CELLS COUNTED % (AUTO) 100 %; WHITE BLOOD COUNT 7.7 10^3/uL (4.0-10.5)
[2018-06-12 07:01] LABS: ALANINE AMINOTRANSFERASE 49 U/L (21-72); ALBUMIN 3.7 g/dL (3.5-5.0); ALKALINE PHOSPHATASE 55 U/L (38-126); ANION GAP 10 (5-19); ASPARTATE AMINO TRANSFERASE 27 U/L (17-59); BILIRUBIN,DIRECT 0.3 mg/dL (0.0-0.4); BILIRUBIN,TOTAL 0.9 mg/dL (0.2-1.3); BLOOD UREA NITROGEN 8 mg/dL (7-20); CALCIUM 8.7 mg/dL (8.4-10.2); CARBON DIOXIDE 29 mmol/L (22-30); CHLORIDE 103 mmol/L (98-107); GLUCOSE 86 mg/dL (75-110); LIPASE 97.1 U/L (23-300); POTASSIUM 3.5 mmol/L (3.6-5.0); SODIUM 142.1 mmol/L (137-145); TOTAL PROTEIN 6.4 g/dL (6.3-8.2)
--- NOTE | 2018-06-12 08:22 | RADIOLOGY REPORT (SQ) ---
EXAM DESCRIPTION: ACUTE ABDOMEN SERIES COMPLETED DATE/TIME: 06/12/2018 8:11 am REASON FOR STUDY: R/O SBO COMPARISON: 17 18 NUMBER OF VIEWS: Three views. TECHNIQUE: PA chest, supine abdomen and upright/decubitus abdomen radiographic images acquired. LIMITATIONS: None. FINDINGS: CHEST: Lungs clear of infiltrates. FREE AIR: None. No abnormal gas collections. BOWEL GAS PATTERN: Few scattered small bowel loops with air fluid levels. No distended large or small bowel loops. CALCIFICATIONS: No suspicious calcifications. HARDWARE: None in the abdomen. SOFT TISSUES: No gross mass or suggestion of organomegaly. BONES: No acute fracture. No worrisome bone lesions. OTHER: No other significant finding. IMPRESSION: NONSPECIFIC BOWEL GAS PATTERN WITHOUT EVIDENCE FOR OBSTRUCTION. Similar to previous. TECHNICAL DOCUMENTATION: JOB ID: [id number] [employer]- All Rights Reserved Reading location - IP/workstation name: [email or web address]
--- NOTE | 2018-06-12 08:53 | PDOC PROGRESS REPORT ---
Subjective Progress Note for:: 06/12/18 Subjective:: Patient's currently doing fair this morning up to start taking the gabapentin Symantec on have episode of the abdominal discomfort in the Dr. Mason the general surgery saw the patient and add the Symantec on in the gabapentin Patient's otherwise denied any nausea no vomiting Patient's denied any chest pain denied any shortness of the breath Tolerate the p.o. intake without any problems Reason For Visit: ABD PAIN SBO Physical Exam Vital Signs: Temp Pulse Resp BP Pulse Ox 98.3 F 86 18 149/88 H 98 06/12/18 08:20 06/12/18 08:20 06/12/18 08:20 06/12/18 08:20 06/12/18 08:20 Intake & Output 06/11/18 06/12/18 06/13/18 06:59 06:59 06:59 Intake Total 2300 4242 Balance 2300 4242 Weight 115.8 kg 114.2 kg General appearance: PRESENT: no acute distress, well-developed, well-nourished Head exam: PRESENT: atraumatic, normocephalic Eye exam: PRESENT: conjunctiva pink, EOMI, PERRLA. ABSENT: scleral icterus Ear exam: PRESENT: normal external ear exam Mouth exam: PRESENT: moist, tongue midline Neck exam: PRESENT: full ROM. ABSENT: carotid bruit, JVD, lymphadenopathy, thyromegaly Respiratory exam: PRESENT: clear to auscultation chidi Cardiovascular exam: PRESENT: RRR. ABSENT: diastolic murmur, rubs, systolic murmur Pulses: PRESENT: normal dorsalis pedis pul, +2 pedal pulses bilateral Vascular exam: PRESENT: normal capillary refill GI/Abdominal exam: PRESENT: normal bowel sounds, soft. ABSENT: distended, guarding, mass, organolmegaly, rebound, tenderness Rectal exam: PRESENT: deferred Extremities exam: ABSENT: pedal edema Musculoskeletal exam: PRESENT: ambulatory Neurological exam: PRESENT: alert, awake, oriented to person, oriented to place , oriented to time, oriented to situation, CN II-XII grossly intact. ABSENT: motor sensory deficit Psychiatric exam: PRESENT: appropriate affect, normal mood. ABSENT: homicidal ideation, suicidal ideation Skin exam: PRESENT: dry, intact, warm. ABSENT: cyanosis, rash Results Laboratory Results: 06/12/18 05:58 06/12/18 05:58 06/12/18 06/12/18 05:58 05:58 WBC 7.7 RBC 4.71 Hgb 13.7 Hct 39.8 MCV 84 MCH 29.1 MCHC 34.5 RDW 13.5 Plt Count 232 Seg Neutrophils % 65.0 Lymphocytes % 24.1 Monocytes % 8.8 Eosinophils % 1.7 Basophils % 0.4 Absolute Neutrophils 5.0 Absolute Lymphocytes 1.9 Absolute Monocytes 0.7 Absolute Eosinophils 0.1 Absolute Basophils 0.0 Sodium 142.1 Potassium 3.5 L Chloride 103 Carbon Dioxide 29 Anion Gap 10 BUN 8 Creatinine 0.83 Est GFR ( Amer) > 60 Est GFR (Non-Af Amer) > 60 Glucose 86 Calcium 8.7 Total Bilirubin 0.9 AST 27 ALT 49 Alkaline Phosphatase 55 Total Protein 6.4 Albumin 3.7 Lipase 97.1 Impressions: Abdomen/Pelvis CT 06/09/18 00:00 IMPRESSION: Findings most likely small bowel obstruction. Transition zone mid abdomen. No identified focus of obstruction. Abdomen X-Ray 06/10/18 06:47 IMPRESSION: Oral contrast from CT is present in the colon in a nonobstructive pattern. There are dilated air-fluid levels in the mid abdomen. Findings could either represent an ileus or partial small bowel obstruction. Acute Abdomen Series 06/12/18 07:00 IMPRESSION: NONSPECIFIC BOWEL GAS PATTERN WITHOUT EVIDENCE FOR OBSTRUCTION. Similar to previous. Assessment & Plan - Diagnosis (1) Partial small bowel obstruction Is this a current diagnosis for this admission?: Yes Plan: Currently all resolved (2) GERD (gastroesophageal reflux disease) Qualifiers: Esophagitis presence: esophagitis presence not specified Qualified Code(s) : K21.9 - Gastro-esophageal reflux disease without esophagitis Is this a current diagnosis for this admission?: Yes Plan: Continues to Protonix (3) Hiccup Is this a current diagnosis for this admission?: Yes Plan: I think patients most likely related to that partial small bowel obstructions and the combination of the gabapentin always works better for patients (4) Hyperlipidemia Qualifiers: Hyperlipidemia type: unspecified Qualified Code(s): E78.5 - Hyperlipidemia , unspecified Is this a current diagnosis for this admission?: Yes (5) ANA on CPAP Is this a current diagnosis for this admission?: Yes Plan: Continues use the CPAP - Time Time Spent with patient: 15-24 minutes Medications reviewed and adjusted accordingly: Yes Anticipated discharge: Home Within: Other - Inpatient Certification Medical Necessity: Need Close Monitoring Due to Risk of Patient Decompensation 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
[2018-06-12] MEDS ORDERED: POTASSIUM CHLORIDE 10 MEQ CAPSULE.ER PO ONE (09:30)
[2018-06-12] MEDS: ENOXAPARIN SODIUM INJ 40 MG/0.4 ML DISP.SYRIN SUBCUT SCH (09:35)
[2018-06-12] MEDS: PANTOPRAZOLE SODIUM 40 MG VIAL IV SCH (09:36)
[2018-06-12] MEDS: CEFTRIAXONE SODIUM 1,000 MG in DEXTROSE 5%-WATER 50 ML IV SCH (09:37)
[2018-06-12] MEDS: NORMAL SALINE 1000 ML 1,000 ML IV PRN ×2 (09:37→18:23)
[2018-06-13 04:51] LABS: ABSOLUTE EOSINOPHILS # (AUTO) 0.2 10^3/uL (0.0-0.6); ABSOLUTE LYMPHOCYTES (AUTO) 1.7 10^3/uL (0.5-4.7); ABSOLUTE MONOCYTES (AUTO) 0.7 10^3/uL (0.1-1.4); ABSOLUTE NEUT (AUTO) 4.1 10^3/uL (1.7-8.2); BASOPHILS % (AUTO) 0.5 % (0-2); EOSINOPHILS % (AUTO) 2.9 % (0-6); HEMATOCRIT 38.8 % (37.9-51.0); HEMOGLOBIN 13.5 g/dL (13.5-17.0); LYMPHOCYTES % (AUTO) 25.7 % (13-45); MEAN CORPUSCULAR HEMOGLOBIN 29.2 pg (27.0-33.4); MEAN CORPUSCULAR HGB CONC 34.9 g/dL (32.0-36.0); MEAN CORPUSCULAR VOLUME 84 fl (80-97); MONOCYTES % (AUTO) 10.7 % (3-13); PLATELET COUNT 228 10^3/uL (150-450); RED BLOOD COUNT 4.64 10^6/uL (4.35-5.55); RED CELL DISTRIBUTION WIDTH 13.6 % (11.5-14.0); SEGMENTED NEUTROPHILS % (AUTO) 60.2 % (42-78); TOTAL CELLS COUNTED % (AUTO) 100 %; WHITE BLOOD COUNT 6.8 10^3/uL (4.0-10.5)
[2018-06-13 05:11] LABS: ANION GAP 11 (5-19); BLOOD UREA NITROGEN 7 mg/dL (7-20); CALCIUM 8.9 mg/dL (8.4-10.2); CARBON DIOXIDE 30 mmol/L (22-30); CHLORIDE 103 mmol/L (98-107); GLUCOSE 89 mg/dL (75-110); POTASSIUM 3.7 mmol/L (3.6-5.0); SODIUM 144.2 mmol/L (137-145)
[2018-06-13] MEDS: METRONIDAZOLE 500 MG TABLET PO SCH ×3 (07:38→22:00)
[2018-06-13] MEDS: GABAPENTIN 400 MG CAPSULE PO SCH ×3 (07:38→22:00)
[2018-06-13] MEDS: NORMAL SALINE 1000 ML 1,000 ML IV PRN (07:38)
[2018-06-13] MEDS: ENOXAPARIN SODIUM INJ 40 MG/0.4 ML DISP.SYRIN SUBCUT SCH (09:44)
[2018-06-13] MEDS: CEFTRIAXONE SODIUM 1,000 MG in DEXTROSE 5%-WATER 50 ML IV SCH (09:45)
--- NOTE | 2018-06-13 13:10 | PDOC PROGRESS REPORT ---
Subjective Progress Note for:: 06/13/18 Subjective:: Patient is currently doing wellDenied any abdominal pain denied any nausea no vomiting but still has a hiccup Denied any chest pain denied any shortness of the breath Reason For Visit: ABD PAIN SBO Physical Exam Vital Signs: Temp Pulse Resp BP Pulse Ox 98.3 F 74 18 147/79 H 98 06/13/18 11:35 06/13/18 11:35 06/13/18 11:35 06/13/18 11:35 06/13/18 11:35 Intake & Output 06/12/18 06/13/18 06/14/18 06:59 06:59 06:59 Intake Total 4242 4796 Balance 4242 4796 Weight 114.2 kg 105.6 kg General appearance: PRESENT: no acute distress, well-developed, well-nourished Head exam: PRESENT: atraumatic, normocephalic Eye exam: PRESENT: conjunctiva pink, EOMI, PERRLA. ABSENT: scleral icterus Ear exam: PRESENT: normal external ear exam Mouth exam: PRESENT: moist, tongue midline Neck exam: PRESENT: full ROM. ABSENT: carotid bruit, JVD, lymphadenopathy, thyromegaly Respiratory exam: PRESENT: clear to auscultation chidi Cardiovascular exam: PRESENT: RRR. ABSENT: diastolic murmur, rubs, systolic murmur Pulses: PRESENT: normal dorsalis pedis pul, +2 pedal pulses bilateral Vascular exam: PRESENT: normal capillary refill GI/Abdominal exam: PRESENT: normal bowel sounds, soft. ABSENT: distended, guarding, mass, organolmegaly, rebound, tenderness Rectal exam: PRESENT: deferred Extremities exam: ABSENT: pedal edema Musculoskeletal exam: PRESENT: ambulatory Neurological exam: PRESENT: alert, awake, oriented to person, oriented to place , oriented to time, oriented to situation, CN II-XII grossly intact. ABSENT: motor sensory deficit Psychiatric exam: PRESENT: appropriate affect, normal mood. ABSENT: homicidal ideation, suicidal ideation Skin exam: PRESENT: dry, intact, warm. ABSENT: cyanosis, rash Results Laboratory Results: 06/13/18 04:10 06/13/18 04:10 06/13/18 06/13/18 04:10 04:10 WBC 6.8 RBC 4.64 Hgb 13.5 Hct 38.8 MCV 84 MCH 29.2 MCHC 34.9 RDW 13.6 Plt Count 228 Seg Neutrophils % 60.2 Lymphocytes % 25.7 Monocytes % 10.7 Eosinophils % 2.9 Basophils % 0.5 Absolute Neutrophils 4.1 Absolute Lymphocytes 1.7 Absolute Monocytes 0.7 Absolute Eosinophils 0.2 Absolute Basophils 0.0 Sodium 144.2 Potassium 3.7 Chloride 103 Carbon Dioxide 30 Anion Gap 11 BUN 7 Creatinine 0.76 Est GFR ( Amer) > 60 Est GFR (Non-Af Amer) > 60 Glucose 89 Calcium 8.9 Impressions: Abdomen/Pelvis CT 06/09/18 00:00 IMPRESSION: Findings most likely small bowel obstruction. Transition zone mid abdomen. No identified focus of obstruction. Abdomen X-Ray 06/10/18 06:47 IMPRESSION: Oral contrast from CT is present in the colon in a nonobstructive pattern. There are dilated air-fluid levels in the mid abdomen. Findings could either represent an ileus or partial small bowel obstruction. Acute Abdomen Series 06/12/18 07:00 IMPRESSION: NONSPECIFIC BOWEL GAS PATTERN WITHOUT EVIDENCE FOR OBSTRUCTION. Similar to previous. Assessment & Plan - Diagnosis (1) Partial small bowel obstruction Is this a current diagnosis for this admission?: Yes Plan: Currently all resolved (2) GERD (gastroesophageal reflux disease) Qualifiers: Esophagitis presence: esophagitis presence not specified Qualified Code(s) : K21.9 - Gastro-esophageal reflux disease without esophagitis Is this a current diagnosis for this admission?: Yes Plan: Continues to Protonix (3) Hiccup Is this a current diagnosis for this admission?: Yes Plan: Very unclear etiology at this point discussed with the on of the GI and suggest a follow-up outpatients Discussed with the patient and the about the ongoing hiccup problems with no clear etiology need a further evaluation intensity symptoms (4) Hyperlipidemia Qualifiers: Hyperlipidemia type: unspecified Qualified Code(s): E78.5 - Hyperlipidemia , unspecified Is this a current diagnosis for this admission?: Yes (5) ANA on CPAP Is this a current diagnosis for this admission?: Yes Plan: Continues use the CPAP - Time Time Spent with patient: 15-24 minutes Medications reviewed and adjusted accordingly: Yes Anticipated discharge: Home Within: within 24 hours - Inpatient Certification Medical Necessity: Need Close Monitoring Due to Risk of Patient Decompensation Post Hospital 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 Mason and suggest surgical standpoint patients could to go home and unclear at this point he comes in for follow-up outpatients discussed with the patient and the increased the more p.o. intake and then a soft diet today Have ongoing hiccup problem for a long time since last admissions with all extensive workup done was negative's may be considered suspicious sent to the [facility] as outpatients for further evaluations Patients will try the more p.o. intake for tolerated very well patients can go home and discussed with the patient and understand the plan if is getting worse following the ER otherwise following the outpatients in the next week office
--- NOTE | 2018-06-13 15:13 | PDOC PROGRESS REPORT ---
Subjective Progress Note for:: 06/13/18 Subjective:: Passed flatus. No pains but still with some hiccups Reason For Visit: ABD PAIN SBO Physical Exam Vital Signs: Temp Pulse Resp BP Pulse Ox 98.3 F 74 18 147/79 H 98 06/13/18 11:35 06/13/18 11:35 06/13/18 11:35 06/13/18 11:35 06/13/18 11:35 Intake & Output 06/12/18 06/13/18 06/14/18 06:59 06:59 06:59 Intake Total 4242 4796 Balance 4242 4796 Weight 114.2 kg 105.6 kg Exam: Abd is soft and non tender Results Laboratory Results: 06/13/18 04:10 06/13/18 04:10 06/13/18 06/13/18 04:10 04:10 WBC 6.8 RBC 4.64 Hgb 13.5 Hct 38.8 MCV 84 MCH 29.2 MCHC 34.9 RDW 13.6 Plt Count 228 Seg Neutrophils % 60.2 Lymphocytes % 25.7 Monocytes % 10.7 Eosinophils % 2.9 Basophils % 0.5 Absolute Neutrophils 4.1 Absolute Lymphocytes 1.7 Absolute Monocytes 0.7 Absolute Eosinophils 0.2 Absolute Basophils 0.0 Sodium 144.2 Potassium 3.7 Chloride 103 Carbon Dioxide 30 Anion Gap 11 BUN 7 Creatinine 0.76 Est GFR ( Amer) > 60 Est GFR (Non-Af Amer) > 60 Glucose 89 Calcium 8.9 Impressions: Abdomen/Pelvis CT 06/09/18 00:00 IMPRESSION: Findings most likely small bowel obstruction. Transition zone mid abdomen. No identified focus of obstruction. Abdomen X-Ray 06/10/18 06:47 IMPRESSION: Oral contrast from CT is present in the colon in a nonobstructive pattern. There are dilated air-fluid levels in the mid abdomen. Findings could either represent an ileus or partial small bowel obstruction. Acute Abdomen Series 06/12/18 07:00 IMPRESSION: NONSPECIFIC BOWEL GAS PATTERN WITHOUT EVIDENCE FOR OBSTRUCTION. Similar to previous. Assessment & Plan - Diagnosis (1) Left inguinal hernia Is this a current diagnosis for this admission?: Yes - Time Time Spent with patient: 15-24 minutes - Plan Summary Plan Summary: SBO appears resolved. Main problem right now is the hiccups. Not sure of etiology. Appears to be temporarily controlled with Brain and simethicone. Will sign off. Call prn
[2018-06-13] MEDS: SIMETHICONE 80 MG TAB.CHEW PO PRN (16:18)
[2018-06-13] MEDS: BACLOFEN 10 MG TABLET PO PRN (19:07)
[2018-06-14] MEDS: NORMAL SALINE 1000 ML 1,000 ML IV PRN (01:55)
[2018-06-14] MEDS: BACLOFEN 10 MG TABLET PO PRN (06:33)
[2018-06-14] MEDS: GABAPENTIN 400 MG CAPSULE PO SCH ×3 (06:33→22:17)
[2018-06-14] MEDS: METRONIDAZOLE 500 MG TABLET PO SCH ×2 (06:33→13:29)
[2018-06-14] MEDS: SIMETHICONE 80 MG TAB.CHEW PO PRN (11:32)
[2018-06-14] MEDS: ENOXAPARIN SODIUM INJ 40 MG/0.4 ML DISP.SYRIN SUBCUT SCH (11:33)
[2018-06-14] MEDS: CEFTRIAXONE SODIUM 1,000 MG in DEXTROSE 5%-WATER 50 ML IV SCH (11:33)
--- NOTE | 2018-06-14 15:06 | PDOC PROGRESS REPORT ---
Subjective Progress Note for:: 06/14/18 Subjective:: Patient was admitted for the management of small bowel obstruction, this was managed conservatively, he has severe hiccups, interfering with breathing causing anxiety in this patient. Reason For Visit: ABD PAIN SBO Physical Exam Vital Signs: Temp Pulse Resp BP Pulse Ox 97.5 F 73 17 153/83 H 97 06/14/18 11:36 06/14/18 11:36 06/14/18 11:36 06/14/18 11:36 06/14/18 11:36 Intake & Output 06/13/18 06/14/18 06/15/18 06:59 06:59 06:59 Intake Total 4796 3300 820 Balance 4796 3300 820 Weight 105.6 kg General appearance: PRESENT: no acute distress Eye exam: PRESENT: PERRLA Respiratory exam: PRESENT: clear to auscultation chidi Cardiovascular exam: PRESENT: +S1, +S2 GI/Abdominal exam: PRESENT: soft Neurological exam: PRESENT: alert Results Laboratory Results: 06/13/18 04:10 06/13/18 04:10 Impressions: Abdomen/Pelvis CT 06/09/18 00:00 IMPRESSION: Findings most likely small bowel obstruction. Transition zone mid abdomen. No identified focus of obstruction. Abdomen X-Ray 06/10/18 06:47 IMPRESSION: Oral contrast from CT is present in the colon in a nonobstructive pattern. There are dilated air-fluid levels in the mid abdomen. Findings could either represent an ileus or partial small bowel obstruction. Acute Abdomen Series 06/12/18 07:00 IMPRESSION: NONSPECIFIC BOWEL GAS PATTERN WITHOUT EVIDENCE FOR OBSTRUCTION. Similar to previous. Assessment & Plan - Diagnosis (1) Small bowel obstruction Is this a current diagnosis for this admission?: Yes (2) Hiccough Is this a current diagnosis for this admission?: Yes Plan: Start chlorpromazine
[2018-06-14] MEDS ORDERED: CHLORPROMAZINE HCL 50 MG TABLET PO ONE (16:00)
[2018-06-14] MEDS: CHLORPROMAZINE HCL 50 MG TABLET PO SCH (22:17)
[2018-06-15] MEDS: CHLORPROMAZINE HCL 50 MG TABLET PO SCH (06:26)
[2018-06-15] MEDS: GABAPENTIN 400 MG CAPSULE PO SCH (06:26)
[2018-06-15 08:00] VITALS: BP 129/72
[2018-06-15] MEDS: ENOXAPARIN SODIUM INJ 40 MG/0.4 ML DISP.SYRIN SUBCUT SCH (09:20)
--- NOTE | 2018-06-15 11:09 | PDOC DISCHARGE SUMMARY ---
General - Admit/Disc Date/PCP Admission Date/Primary Care Provider: 06/09/18 18:26 JAMESON GROSS MD Discharge Date: 06/15/18 - Discharge Diagnosis (1) Small bowel obstruction Is this a current diagnosis for this admission?: Yes (2) Hiccough Is this a current diagnosis for this admission?: Yes - Additional Information Prescriptions: Ondansetron [Zofran Odt 4 mg Tablet] 4 mg PO Q4HP PRN #20 tab.rapdis PRN Reason: Baclofen [Baclofen 10 mg Tablet] 5 mg PO Q8HP PRN #30 tablet PRN Reason: Simethicone [Mylicon 80 mg Chewable Tablet] 80 mg PO Q8HP PRN #90 tab.chew PRN Reason: Ciprofloxacin HCl [Cipro 500 mg Tablet] 500 mg PO BID #14 tablet Gabapentin [Neurontin 400 mg Capsule] 300 mg PO Q8 #90 capsule Metronidazole [Flagyl 500 mg Tablet] 500 mg PO Q8 #21 tablet Home Medications: Dexlansoprazole [Dexilant 60 mg Capsule] 60 mg PO DAILY 06/09/18 Baclofen [Baclofen 10 mg Tablet] 5 mg PO Q8HP PRN #30 tablet 06/13/18 Ciprofloxacin HCl [Cipro 500 mg Tablet] 500 mg PO BID #14 tablet 06/13/18 Gabapentin [Neurontin 400 mg Capsule] 300 mg PO Q8 #90 capsule 06/13/18 Metronidazole [Flagyl 500 mg Tablet] 500 mg PO Q8 #21 tablet 06/13/18 Ondansetron [Zofran Odt 4 mg Tablet] 4 mg PO Q4HP PRN #20 tab.rapdis 06/13/18 Simethicone [Mylicon 80 mg Chewable Tablet] 80 mg PO Q8HP PRN #90 tab.chew 06/13 History of Present Illness History of Present Illness: IBETH ORTIZ is a 58 year old male, he was admitted when he presented with small bowel obstruction Hospital Course Hospital Course: He was admitted for the management of small bowel obstruction, he was managed conservatively, he was seen by the surgeon no surgical intervention was done. He developed hiccoughs this was treated with chlorpromazine with a good response. Patient is stable for discharge Physical Exam Vital Signs: Temp Pulse Resp BP Pulse Ox 97.8 F 74 18 129/72 H 98 06/15/18 07:59 06/15/18 07:59 06/15/18 07:59 06/15/18 07:59 06/15/18 07:59 Intake & Output 06/14/18 06/15/18 06/16/18 06:59 06:59 06:59 Intake Total 3300 2470 Balance 3300 2470 Weight 113.5 kg General appearance: PRESENT: no acute distress, well-developed, well-nourished Head exam: PRESENT: atraumatic, normocephalic Eye exam: PRESENT: conjunctiva pink, EOMI, PERRLA Ear exam: PRESENT: normal external ear exam Mouth exam: PRESENT: moist, tongue midline Neck exam: PRESENT: full ROM Respiratory exam: PRESENT: clear to auscultation chidi Cardiovascular exam: PRESENT: RRR, +S1, +S2 Pulses: PRESENT: normal dorsalis pedis pul, +2 pedal pulses bilateral Vascular exam: PRESENT: normal capillary refill GI/Abdominal exam: PRESENT: normal bowel sounds, soft Rectal exam: PRESENT: deferred Neurological exam: PRESENT: alert, awake, oriented to person, oriented to place , oriented to time, oriented to situation, CN II-XII grossly intact Psychiatric exam: PRESENT: appropriate affect, normal mood Skin exam: PRESENT: dry, intact, warm Results Laboratory Results: 06/13/18 04:10 06/13/18 04:10 06/09/18 18:40 Blood Blood Culture - Final NO GROWTH IN 5 DAYS 06/09/18 19:13 Blood Blood Culture - Final NO GROWTH IN 5 DAYS Impressions: Abdomen/Pelvis CT 06/09/18 00:00 IMPRESSION: Findings most likely small bowel obstruction. Transition zone mid abdomen. No identified focus of obstruction. Abdomen X-Ray 06/10/18 06:47 IMPRESSION: Oral contrast from CT is present in the colon in a nonobstructive pattern. There are dilated air-fluid levels in the mid abdomen. Findings could either represent an ileus or partial small bowel obstruction. Acute Abdomen Series 06/12/18 07:00 IMPRESSION: NONSPECIFIC BOWEL GAS PATTERN WITHOUT EVIDENCE FOR OBSTRUCTION. Similar to previous. Qualifiers - * PATIENT BEING DISCHARGED WITH ANY OF THE FOLLOWING DIAGNOSIS: No
== END 2018-06-15 13:02 | disposition home or self-care (01) | DRG 390 ==
LOC: ER 13:18 → UNDOADMIN 18:26 → EH 18:26 → 5 21:43
PROVIDERS: ADMIT Family Medicine; ATTEND Family Medicine
PROC: 0D9670Z Drainage of Stomach with Drainage Device, Via Natural or Artificial Opening (ICD-10-PCS; principal; 2018-06-09)
PROC: 5A09457 Assistance with Respiratory Ventilation, 24-96 Consecutive Hours, Continuous Positive Airway Pressure (ICD-10-PCS; 2018-06-09)
DX: K56.600 Partial intestinal obstruction, unspecified as to cause (principal); R06.6 Hiccough; E78.00 Pure hypercholesterolemia, unspecified; K21.9 Gastro-esophageal reflux disease without esophagitis; I10 Essential (primary) hypertension; G47.33 Obstructive sleep apnea (adult) (pediatric); K52.9 Noninfective gastroenteritis and colitis, unspecified; K40.90 Unilateral inguinal hernia, without obstruction or gangrene, not specified as recurrent; Z90.49 Acquired absence of other specified parts of digestive tract; Z88.8 Allergy status to other drugs, medicaments and biological substances; Z79.899 Other long term (current) drug therapy; Z87.11 Personal history of peptic ulcer disease
CPT/HCPCS: 36415; 74019; 74022; 74177; 80048; 80053; 81001; 83690; 85025; 87040; 87086; 87493; 93005; 93010; 94660; 96361; 96374; 96375; 99285; J0696; J0780; J1200; J1650; J2250; J3010; J3490; J7030; S0119; S0164

== ENCOUNTER → 2018-12-15 | Outpatient (CLI) | payer BC ==
--- NOTE | 2018-12-15 16:47 | RADIOLOGY REPORT (SQ) ---
EXAM DESCRIPTION: U/S THYROID/SFT TISS HD NECK COMPLETED DATE/TIME: 12/15/2018 4:37 pm REASON FOR STUDY: L98.9 DISORDER OF THE SKIN AND SUBCUTANEOUS TISSUE, UNSPECIFIED L98.9 DISORDER OF THE SKIN AND SUBCUTANEOUS TISSUE, UNSPECIF COMPARISON: None. TECHNIQUE: Dynamic and static ogrman-scale images acquired of the neck soft tissues. Selected addition al color/power Doppler images recorded. All images stored to PACS. LIMITATIONS: None. FINDINGS: Patient has a palpable neck in the subcutaneous soft tissues, right posterior neck. Ultrasound of this region demonstrates a 1 cm x 0.8 cm sebaceous cyst with low level internal echoes/ debris. Well-circumscribed with good acoustic through transmission. No internal color flow. Tract to the skin surface is identified. No surrounding inflammation. This is entirely contained within t he skin and immediate subcutaneous fat. IMPRESSION: Chronic appearing sebaceous cyst, 1 x 0.8 cm in size correlating with the area of palpab le abnormality, posterior right neck TECHNICAL DOCUMENTATION: JOB ID: [id number] [employer]- All Rights Reserved Reading location - IP/workstation name: [facility]
== END ==
LOC: RAD 20:07
PROVIDERS: ATTEND Physician Assistant
DX: L98.9 Disorder of the skin and subcutaneous tissue, unspecified (principal); L72.0 Epidermal cyst
CPT/HCPCS: 76536